=== PATIENT | female | born 1970 | race Caucasian/White ===

== ENCOUNTER 2018-09-22 04:27 | Inpatient (IN) ==
--- NOTE | 2018-09-22 04:40 | ED ---
HPI General Chief Complaint: Arrhythmia / Palpitations Stated Complaint: Cough x 1 wk,chest pain,short of breath Time Seen by Provider: 09/22/18 04:37 Source: patient Mode of arrival: ambulatory Limitations: no limitations History of Present Illness HPI narrative: 48-year-old female patient with previous history of anxiety attacks, states that she has been very stressed out recently, 2 family members have recently, and for the last week she has had coughing, chest discomfort, palpitations, and intermittent shortness of breath. She states that it got much worse tonight, but she states that she knows it was coming because she has been feeling more stressed out. She denies any fevers, vomiting , or other symptoms. Related Data Home Medications Medication Instructions Recorded Confirmed No Known Home Medications 09/22/18 09/22/18 Allergies Allergy/AdvReac Type Severity Reaction Status Date / Time codeine Allergy Severe WELTS Verified 09/22/18 04:43 Review of Systems ROS: all other systems reviewed are negative PMFSH History History Provided By: Patient Medical History Medical History Patient denies medical problems (Acute) Surgical History Surgical History No history of previous surgery (Acute) Family History Family History Father Family history of tobacco abuse Social History Social History Substance History: No History of Abuse Second Hand Smoke Exposure: No Smoking Status: Former smoker Tobacco Type: Cigarettes Number of Pack-Years (if former smoker): 15 How Often Do You Have a Drink Containing Alcohol: 2 to 4 times a month Recent Travel in [facility] within the Last 8 Weeks: No Recent Out of Country Travel within the Last 8 Weeks: No Exam Narrative Exam Narrative: GENERAL: Well-developed middle-age female patient currently in moderate distress, appears fairly anxious. Awake and oriented x3. SKIN: Focused skin assessment warm/dry. HEAD: Atraumatic. Normocephalic. EYES: Pupils equal and round. No scleral icterus. No injection or drainage. ENT: No nasal bleeding or discharge. Mucous membranes pink and moist. NECK: Trachea midline. No JVD. CARDIOVASCULAR: Regular rate and rhythm. No murmur appreciated. RESPIRATORY: No accessory muscle use. Clear to auscultation. Breath sounds equal bilaterally. GASTROINTESTINAL: Abdomen soft, non-tender, nondistended. Hepatic and splenic margins not palpable. MUSCULOSKELETAL: No obvious deformities. No clubbing. No cyanosis. No edema. NEUROLOGICAL: Awake and alert. No obvious cranial nerve deficits. Motor grossly within normal limits. Normal speech. PSYCHIATRIC: Very anxious mood and affect; insight and judgment normal. Course Initial Documented Vital Signs Pulse Rate 145 H 09/22/18 04:35 Respiratory Rate 25 H 09/22/18 04:35 Blood Pressure 140/95 H 09/22/18 04:35 Pulse Oximetry 90 L 09/22/18 04:35 Last Documented Vital Signs Temperature 98.6 F 09/22/18 16:00 Pulse Rate 120 H 09/22/18 17:11 Respiratory Rate 35 H 09/22/18 17:11 Blood Pressure 109/72 09/22/18 16:51 Pulse Oximetry 97 09/22/18 17:11 Medical Decision Making MDM Narrative Medical decision making narrative: EKG shows narrow complex tachycardia which appears to be regular and is likely sinus tachycardia. Chest x-ray and CTA show signs of new onset CHF. No PE identified. BNP is 1000. At this point, case is discussed with hospitalist for admission peer Medical Screen Exam Complete: Yes Emergency Medical Condition: Yes Differential Diagnosis Differential Diagnosis: Anxiety attack versus dysrhythmias versus ACS versus PE Lab Data Lab results reviewed: Yes I reviewed the patient's lab results. Result diagrams: 09/22/18 05:18 09/22/18 04:35 Lab Results 09/22/18 09/22/18 09/22/18 Range/Units 04:35 04:35 04:35 CBC w Diff WBC (4.0-11.0) th/mm3 RBC (4.00-5.30) mil/mm3 Hgb (11.6-15.3) gm/dL Hct (35.0-46.0) % MCV (80.0-100.0) fL MCH (27.0-34.0) pg MCHC (32.0-36.0) % RDW (11.6-17.2) % Plt Count (150-450) th/mm3 MPV (7.0-11.0) fL Neut % (Auto) (16.0-70.0) % Lymph % (Auto) (9.0-44.0) % [place] % (Auto) (0.0-8.0) % Eos % (Auto) (0.0-4.0) % Baso % (Auto) (0.0-2.0) % Neut # (Auto) (1.8-7.7) th/mm3 Lymph # (Auto) (1.0-4.8) th/mm3 [place] # (Auto) (0.0-0.9) th/mm3 Eos # (Auto) (0.0-0.4) th/mm3 Baso # (Auto) (0.0-0.2) th/mm3 WBC Differential Differential Comment PT 11.5 (9.8-11.6) sec INR 1.1 Ratio APTT 20.1 L (24.3-30.1) sec D-Dimer Quant (PE/DVT) 0.79 H (0.00-0.50) mg/L FEU Sodium 139 (136-145) meq/L Potassium 3.9 (3.5-5.1) meq/L Chloride 103 (98-107) meq/L Carbon Dioxide 25.5 (21.0-32.0) meq/L Anion Gap 11 (5-15) meq/L BUN 16 (7-18) mg/dL Creatinine 0.86 (0.50-1.00) mg/dL Estimated GFR 70 L (>89) mL/min Random Glucose 120 H (74-106) mg/dL Calcium 8.3 L (8.5-10.1) mg/dL Total Bilirubin 0.3 (0.2-1.0) mg/dL AST 85 H (15-37) U/L ALT 99 H (10-53) U/L Alkaline Phosphatase 85 (45-117) U/L Troponin I Less than 0.02 L (0.02-0.05) ng/mL B-Natriuretic Peptide 1024 H (0-100) pg/mL Total Protein 7.3 (6.4-8.2) g/dL Albumin 3.7 (3.4-5.0) g/dL Pleural RBC (0-0) /mm3 Pleural Nuc Cells (0-10) /mm3 Pleural Neutrophils % Pleural Lymphocytes % Pleural Histocytes % Pleural Mesothelial % Pleural Total Protein gm/dL Pleural LDH U/L Pleural Glucose mg/dL Pleural Amylase U/L 10/09/22/18 09/22/18 Range/Units 05:18 10:45 13:20 CBC w Diff Auto diff final WBC 7.9 (4.0-11.0) th/mm3 RBC 4.36 (4.00-5.30) mil/mm3 Hgb 13.1 (11.6-15.3) gm/dL Hct 39.2 (35.0-46.0) % MCV 89.8 (80.0-100.0) fL MCH 30.1 (27.0-34.0) pg MCHC 33.5 (32.0-36.0) % RDW 14.7 (11.6-17.2) % Plt Count 314 (150-450) th/mm3 MPV 8.2 (7.0-11.0) fL Neut % (Auto) 55.6 (16.0-70.0) % Lymph % (Auto) 34.4 (9.0-44.0) % [place] % (Auto) 6.7 (0.0-8.0) % Eos % (Auto) 1.6 (0.0-4.0) % Baso % (Auto) 1.7 (0.0-2.0) % Neut # (Auto) 4.5 (1.8-7.7) th/mm3 Lymph # (Auto) 2.7 (1.0-4.8) th/mm3 [place] # (Auto) 0.5 (0.0-0.9) th/mm3 Eos # (Auto) 0.1 (0.0-0.4) th/mm3 Baso # (Auto) 0.1 (0.0-0.2) th/mm3 WBC Differential . Differential Comment . PT (9.8-11.6) sec INR Ratio APTT (24.3-30.1) sec D-Dimer Quant (PE/DVT) (0.00-0.50) mg/L FEU Sodium (136-145) meq/L Potassium (3.5-5.1) meq/L Chloride (98-107) meq/L Carbon Dioxide (21.0-32.0) meq/L Anion Gap (5-15) meq/L BUN (7-18) mg/dL Creatinine (0.50-1.00) mg/dL Estimated GFR (>89) mL/min Random Glucose (74-106) mg/dL Calcium (8.5-10.1) mg/dL Total Bilirubin (0.2-1.0) mg/dL AST (15-37) U/L ALT (10-53) U/L Alkaline Phosphatase (45-117) U/L Troponin I Less than 0.02 L (0.02-0.05) ng/mL B-Natriuretic Peptide (0-100) pg/mL Total Protein (6.4-8.2) g/dL Albumin (3.4-5.0) g/dL Pleural RBC 1340 H (0-0) /mm3 Pleural Nuc Cells 95 H (0-10) /mm3 Pleural Neutrophils 3 % Pleural Lymphocytes 76 % Pleural Histocytes 20 % Pleural Mesothelial 1 % Pleural Total Protein gm/dL Pleural LDH U/L Pleural Glucose mg/dL Pleural Amylase U/L 09/22/18 Range/Units 13:31 CBC w Diff WBC (4.0-11.0) th/mm3 RBC (4.00-5.30) mil/mm3 Hgb (11.6-15.3) gm/dL Hct (35.0-46.0) % MCV (80.0-100.0) fL MCH (27.0-34.0) pg MCHC (32.0-36.0) % RDW (11.6-17.2) % Plt Count (150-450) th/mm3 MPV (7.0-11.0) fL Neut % (Auto) (16.0-70.0) % Lymph % (Auto) (9.0-44.0) % [place] % (Auto) (0.0-8.0) % Eos % (Auto) (0.0-4.0) % Baso % (Auto) (0.0-2.0) % Neut # (Auto) (1.8-7.7) th/mm3 Lymph # (Auto) (1.0-4.8) th/mm3 [place] # (Auto) (0.0-0.9) th/mm3 Eos # (Auto) (0.0-0.4) th/mm3 Baso # (Auto) (0.0-0.2) th/mm3 WBC Differential Differential Comment PT (9.8-11.6) sec INR Ratio APTT (24.3-30.1) sec D-Dimer Quant (PE/DVT) (0.00-0.50) mg/L FEU Sodium (136-145) meq/L Potassium (3.5-5.1) meq/L Chloride (98-107) meq/L Carbon Dioxide (21.0-32.0) meq/L Anion Gap (5-15) meq/L BUN (7-18) mg/dL Creatinine (0.50-1.00) mg/dL Estimated GFR (>89) mL/min Random Glucose (74-106) mg/dL Calcium (8.5-10.1) mg/dL Total Bilirubin (0.2-1.0) mg/dL AST (15-37) U/L ALT (10-53) U/L Alkaline Phosphatase (45-117) U/L Troponin I (0.02-0.05) ng/mL B-Natriuretic Peptide (0-100) pg/mL Total Protein (6.4-8.2) g/dL Albumin (3.4-5.0) g/dL Pleural RBC (0-0) /mm3 Pleural Nuc Cells (0-10) /mm3 Pleural Neutrophils % Pleural Lymphocytes % Pleural Histocytes % Pleural Mesothelial % Pleural Total Protein 1.9 gm/dL Pleural LDH 66 U/L Pleural Glucose 108 mg/dL Pleural Amylase 14 U/L Imaging Data Attestation: I personally reviewed and interpreted this imaging study as follows : Radiologist's impression: Chest X-Ray 09/22/18 00:00 CONCLUSION: 1. Near interval resolution of right-sided pleural effusion without pneumothorax. 2. Persistent moderate left pleural effusion with associated airspace disease at the lung base. Thoracentesis Ultrasound 09/22/18 00:00 CONCLUSION: 1. Uncomplicated right thoracentesis yielding 750 cc of clear yellow pleural fluid which was sent for laboratory evaluation. Chest X-Ray 09/22/18 04:37 CONCLUSION: Prominent interstitial markings which may represent pulmonary venous hypertension versus mild edema. Atelectasis or consolidation at the left base. A mild left effusion cannot be excluded. Chest CTA 09/22/18 05:37 CONCLUSION: 1. No pulmonary embolus. 2. Moderate to large bilateral pleural effusions being worse in the left with suspected accompanying areas of atelectasis or consolidation at the posterior lower lobes. Myocardial Perfusion Scan Nuc Med 09/22/18 14:25 CONCLUSION: 1. Scintigraphic findings characteristic of a dilated cardiomyopathy with diffuse hypokinesis and a markedly reduced ejection fraction of 22%. 2. Possible old apical infarct. 3. No reversibility to suggest ischemia. Discharge Plan Discharge Disposition Patient Disposition: 30 Still Patient Discharge Condition Condition: Stable Discharge Details Anticipated Discharge Date: 09/21/18 Diagnosis: Elevated brain natriuretic peptide (BNP) level, Bilateral pleural effusion Physicians Team ED Provider: Donnie Perez Primary Care Provider: Primary Care Poppy Anderson Attending Provider: Khang Kurtz Other Providers: Vazquez Yeh Discharge Interventions Interventions: ED Discharge Assessment Last Done: 09/22/18 07:38 Vital Signs Last Done: 09/22/18 06:48 Status ED Status: Left Department Discharge Information Discharge Date/Time: 09/22/18 07:40
--- NOTE | 2018-09-22 04:50 | XR ---
EXAM DATE: 09/22/2018 4:37 AM EDT AGE/SEX: 48 years / Female INDICATIONS: Short of breath. CLINICAL DATA: This is the patient's initial encounter. Patient reports that signs and symptoms have been present for 1 day and indicates a pain score of 5/10. MEDICAL/SURGICAL HISTORY: None. None. COMPARISON: No prior exams available for comparison. FINDINGS: The heart size is upper limits of normal for size. There is patchy density at the left base with silh ouetting of the lateral left hemidiaphragm. The interstitial markings are prominent. CONCLUSION: Prominent interstitial markings which may represent pulmonary venous hypertension versus mild edema. Atelectasis or consolidation at the left base. A mild left effusion cannot be excluded. Electronically signed by: Reggie Bey MD 09/22/2018 4:48 AM EDT
[2018-09-22 05:15] LABS: Chloride 103 meq/L (98-107); Potassium 3.9 meq/L (3.5-5.1); Sodium 139 meq/L (136-145)
[2018-09-22 05:18] LABS: Calcium 8.3 mg/dL (8.5-10.1)
[2018-09-22 05:19] LABS: Albumin 3.7 g/dL (3.4-5.0); Anion Gap 11 meq/L (5-15); Blood Urea Nitrogen 16 mg/dL (7-18); Carbon Dioxide 25.5 meq/L (21.0-32.0); Glucose,Random 120 mg/dL (74-106)
[2018-09-22 05:22] LABS: Alanine Aminotransferase 99 U/L (10-53); Aspartate Aminotransferase 85 U/L (15-37); Glomerular Filtration Rate 70 mL/min (>89)
[2018-09-22 05:23] LABS: Baso # (Auto) 0.1 th/mm3 (0.0-0.2); Baso % (Auto) 1.7 % (0.0-2.0); Eos # (Auto) 0.1 th/mm3 (0.0-0.4); Eos % (Auto) 1.6 % (0.0-4.0); Hematocrit 39.2 % (35.0-46.0); Hemoglobin 13.1 gm/dL (11.6-15.3); Lymph # (Auto) 2.7 th/mm3 (1.0-4.8); Lymph % (Auto) 34.4 % (9.0-44.0); Mean Corpuscular HGB Conc 33.5 % (32.0-36.0); Mean Corpuscular Hemoglobin 30.1 pg (27.0-34.0); Mean Corpuscular Volume 89.8 fL (80.0-100.0); Mean Platelet Volume 8.2 fL (7.0-11.0); Mono # (Auto) 0.5 th/mm3 (0.0-0.9); Mono % (Auto) 6.7 % (0.0-8.0); Neut # (Auto) 4.5 th/mm3 (1.8-7.7); Neut % (Auto) 55.6 % (16.0-70.0); Platelet Count 314 th/mm3 (150-450); Red Blood Count 4.36 mil/mm3 (4.00-5.30); Red Cell Distribution Width 14.7 % (11.6-17.2); White Blood Count 7.9 th/mm3 (4.0-11.0)
[2018-09-22 05:23] LABS: Total Protein 7.3 g/dL (6.4-8.2)
[2018-09-22 05:25] LABS: Alkaline Phosphatase 85 U/L (45-117)
[2018-09-22 05:27] LABS: Activated Partial Thrombo Time 20.1 sec (24.3-30.1); INR 1.1 Ratio; Prothrombin Time 11.5 sec (9.8-11.6)
[2018-09-22 05:29] LABS: D-Dimer 0.79 mg/L FEU (0.00-0.50)
--- NOTE | 2018-09-22 06:27 | CT ---
EXAM DATE: 09/22/2018 5:48 AM EDT AGE/SEX: 48 years / Female INDICATIONS: Chest pain. Shortness of breath. Elevated heart rate. CLINICAL DATA: This is the patient's initial encounter. Patient reports that signs and symptoms have been present for 4 - 6 days and indicates a pain score of 4/10. MEDICAL/SURGICAL HISTORY: None. None. RADIATION DOSE: 6.7 CTDI (mGy) COMPARISON: No prior exams available for comparison. TECHNIQUE: Volumetric scanning was performed using a multi-row detector CT scanner during bolus infu jose of 75 ml Omnipaque 350 (iohexol) nonionic water-soluble contrast as a single exam dose. The lamine a was post processed with a variety of visualization algorithms including full volume maximum intensi ty projection and sliding thin slab reformation. Using automated exposure control and adjustment of t he mA and/or kV according to patient size, radiation dose was kept as low as reasonably achievable to obtain optimal diagnostic quality images. DICOM format image data is available electronically for r eview and comparison. FINDINGS: Pulmonary Arteries: No filling defects are seen in the pulmonary arteries out to the subsegmental ve ssels. The left and right pulmonary arteries are normal in diameter. Lung: There is increased density at the posterior lower lungs bilaterally likely related to atelecta sis or consolidation. Effusion: There are moderate to large bilateral pleural effusions being worse on the right Mediastinum: No evidence of mediastinal or hilar adenopathy. Other: The axilla is unremarkable. There is a 6.6 cm cyst at the anterior superior left kidney. CONCLUSION: 1. No pulmonary embolus. 2. Moderate to large bilateral pleural effusions being worse in the left with suspected accompanying areas of atelectasis or consolidation at the posterior lower lobes. Electronically signed by: Reggie Bey MD 09/22/2018 6:26 AM EDT
[2018-09-22] MEDS ORDERED: Acetaminophen 325 MG Tablet PO PRN (06:39)
[2018-09-22] MEDS ORDERED: Bisacodyl 10 MG Supp RECTAL PRN (06:39)
[2018-09-22] MEDS ORDERED: Metoprolol Tartrate 25 MG Tablet PO SCH (09:00)
--- NOTE | 2018-09-22 09:07 | P.HP ---
History of Present Illness Primary Care Physician: No Primary Care Physician Chief Complaint: Shortness of breath and dyspnea History of Present Illness: 48-year-old female with no chronic medical illnesses who presented to hospital because of shortness of breath and dyspnea. Patient states that over the last 2 weeks she has been having intermittent shortness of breath and dyspnea. She states that it is worse whenever she lays down, however it does improve whenever she stands up. She does have a long history of tobacco use which she quit smoking 5 years ago. She has had a dry nonproductive cough over the last few weeks as well. Patient states that whenever she gets these episodes she does feel very anxious, pressure in her chest, feels her heart racing. She started feeling at 11 PM last night and just did not get any better , she woke her son up at 4 AM this morning and he brought her to the hospital for evaluation. Workup does indicate significant pleural effusion bilaterally on CT scan. Patient has been tachycardic. No signs of any infection at this time. But no etiology of patient's pleural effusion, elevated BNP. Patient denies any lower extremity edema, denies any dyspnea on exertion. - Diagnosis (1) Elevated brain natriuretic peptide (BNP) level (2) Bilateral pleural effusion Inpatient Certification: I certify that the inpatient services were ordered in accordance with Medicare regulations governing the order. This includes certification that hospital inpatient services are reasonable and necessary and in the case of services not specified as inpatient-only under 42 CFR 419.22(n), that they are appropriately provided as inpatient services in accordance to with the 2-midnight benchmark under 43 CFR 412.3(e) Estimated Total Length of Stay (Days): 2 Plans for Post Hospital Care: Not yet determined Review of Systems All other systems reviewed negative except as stated in HPI Respiratory: Reports cough, Reports shortness of breath, Reports other ( Orthopnea) PMFSH - History History Provided By: Patient - Medical History Medical History: Medical History (Last Reviewed 09/22/18 @ 09:01 by LONI Finley) Patient denies medical problems - Surgical History Surgical History: Surgical History (Last Reviewed 09/22/18 @ 09:01 by LONI Finley) No history of previous surgery - Family History Family History: Family History (Last Updated 09/22/18 @ 09:01 by LONI Finley) Father Family history of tobacco abuse - Tobacco History Second Hand Smoke Exposure: No Tobacco Use In Past 30 Days: No Smoking Status: Former smoker Tobacco Type: Cigarettes Number of Pack Years (if former smoker): 15 - Alcohol History How Often Do You Have a Drink Containing Alcohol: 2 to 4 times a month - Substance Use History Substance History: No History of Abuse - Travel History Recent Travel in the [place] Within the Last 8 Weeks: No Recent Travel Out of the Country Within the Last 8 Weeks: No - Immunization History Tetanus Immunization: Unsure Hx Influenza Vaccine This Season: Yes Medications and Allergies Active Medications: Active Medications Acetaminophen (Tylenol) 650 mg PO Q4H PRN PRN Reason: Temp > 100.4 Al Hydroxide/Mg Hydroxide (Milk Of Magnesia Liq) 30 ml PO Q12H PRN PRN Reason: Mild Constipation Bisacodyl (Dulcolax Supp) 10 mg RECTAL DAILY PRN PRN Reason: SEVERE CONSITIPATION Furosemide (Lasix Inj) 40 mg IV.PUSH BID@0900,1800 AYDEE Lactulose (Lactulose Liq) 30 ml PO DAILY PRN PRN Reason: SEVERE CONSITIPATION Lisinopril (Prinivil) 2.5 mg PO DAILY AYDEE Metoprolol Tartrate (Lopressor) 12.5 mg PO BID AYDEE Miscellaneous (Pill Splitter) 1 each OTHER UNSCH PRN PRN Reason: SEE LABEL COMMENTS Ondansetron HCl (Zofran Inj) 4 mg IV.PUSH Q6H PRN PRN Reason: NAUSEA OR VOMITING Senna/Docusate Sodium (Stella-Colace) 1 tab PO BID AYDEE Sennosides (Senokot) 17.2 mg PO Q12H PRN PRN Reason: Moderate Constipation Allergies Allergy/AdvReac Type Severity Reaction Status Date / Time codeine Allergy Severe WELTS Verified 09/22/18 04:43 Home Medications Medication Instructions Recorded Confirmed Type No Known Home Medications 09/22/18 09/22/18 History Exam Vital signs: Vital Signs 09/22/18 04:35 09/22/18 04:40 09/22/18 05:04 Temperature Pulse Rate 145 H Respiratory Rate 25 H Blood Pressure 140/95 H Pulse Oximetry 90 L 94 L 93 L 09/22/18 05:09 09/22/18 05:10 09/22/18 05:20 Temperature 98.5 F Pulse Rate 121 H Respiratory Rate 20 Blood Pressure 132/87 Pulse Oximetry 86 L 90 L 97 09/22/18 05:57 09/22/18 06:46 09/22/18 06:48 Temperature 98.4 F Pulse Rate 123 H 125 H Respiratory Rate 20 Blood Pressure 133/91 H 151/87 H 151/87 H Pulse Oximetry 95 09/22/18 07:08 09/22/18 07:18 Temperature Pulse Rate 121 H Respiratory Rate 22 Blood Pressure 130/86 Pulse Oximetry 97 Intake & Output 09/21/18 09/22/18 09/22/18 18:59 06:59 18:59 Weight 56.699 kg 57 kg Other: Weight On Admission 59 kg Narrative: GENERAL: Well-developed, well-nourished, in no acute distress. alert and orientated HEENT: Head is normocephalic without any lesions or masses noted. Facial features are symmetric. Eyes: Pupils equal round reactive to light. Extraocular muscles are intact. Conjunctivae were clear. Oropharyngeal: Pharynx without any erythema edema. Tongue is midline without deviation. Buccal mucosa is moist without any masses or lesions NECK: Supple without any masses. Trachea midline no deviation. No JVD, no bruits are appreciated CARDIAC: Regular rhythm, regular rate. S1/S2 are heard. No murmurs gallops or rubs. LUNGS: Absent breath sounds noted bilateral lower lung beasley. No wheeze, rhonchi or rales. No use of accessory muscles on inspiration or expiration. ABDOMEN: Soft, nontender. Nondistended. Bowel sounds heard in all 4 quadrants. No organomegaly or masses. Negative rebound, negative guarding EXTREMITIES: No edema, pulses are equal bilaterally. No cyanosis or clubbing NEUROLOGY: Mood and affect appear appropriate. Cranial nerves II through XII grossly intact. Muscle strength 5/5 in upper and lower extremities bilaterally. Deep tendon reflexes are 2+ in upper and lower extremities bilaterally. Results - Labs CBC & Chem 7: 09/22/18 05:18 09/22/18 04:35 Labs: Laboratory Results - last 24 hr 09/22/18 09/22/18 09/22/18 04:35 04:35 04:35 CBC w Diff WBC RBC Hgb Hct MCV MCH MCHC RDW Plt Count MPV Neut % (Auto) Lymph % (Auto) [place] % (Auto) Eos % (Auto) Baso % (Auto) Neut # (Auto) Lymph # (Auto) [place] # (Auto) Eos # (Auto) Baso # (Auto) WBC Differential Differential Comment PT 11.5 INR 1.1 APTT 20.1 L D-Dimer Quant (PE/DVT) 0.79 H Sodium 139 Potassium 3.9 Chloride 103 Carbon Dioxide 25.5 Anion Gap 11 BUN 16 Creatinine 0.86 Estimated GFR 70 L Random Glucose 120 H Calcium 8.3 L Total Bilirubin 0.3 AST 85 H ALT 99 H Alkaline Phosphatase 85 Troponin I Less than 0.02 L B-Natriuretic Peptide 1024 H Total Protein 7.3 Albumin 3.7 09/22/18 05:18 CBC w Diff Auto diff final WBC 7.9 RBC 4.36 Hgb 13.1 Hct 39.2 MCV 89.8 MCH 30.1 MCHC 33.5 RDW 14.7 Plt Count 314 MPV 8.2 Neut % (Auto) 55.6 Lymph % (Auto) 34.4 [place] % (Auto) 6.7 Eos % (Auto) 1.6 Baso % (Auto) 1.7 Neut # (Auto) 4.5 Lymph # (Auto) 2.7 [place] # (Auto) 0.5 Eos # (Auto) 0.1 Baso # (Auto) 0.1 WBC Differential . Differential Comment . PT INR APTT D-Dimer Quant (PE/DVT) Sodium Potassium Chloride Carbon Dioxide Anion Gap BUN Creatinine Estimated GFR Random Glucose Calcium Total Bilirubin AST ALT Alkaline Phosphatase Troponin I B-Natriuretic Peptide Total Protein Albumin - Imaging Impressions Chest X-Ray 09/22/18 04:37 CONCLUSION: Prominent interstitial markings which may represent pulmonary venous hypertension versus mild edema. Atelectasis or consolidation at the left base. A mild left effusion cannot be excluded. Chest CTA 09/22/18 05:37 CONCLUSION: 1. No pulmonary embolus. 2. Moderate to large bilateral pleural effusions being worse in the left with suspected accompanying areas of atelectasis or consolidation at the posterior lower lobes. Caprini VTE Risk Assessment Caprini VTE Risk Assessment: No/Low Risk (score <= 1) Caprini Risk Assessment Model: Point Value = 1 Point Value = 2 Point Value = 3 Point Value = 5 Age 41-60 Minor surgery BMI > 25 kg/m2 Swollen legs Varicose veins or History of unexplained or recurrent spontaneous Oral contraceptives or hormone replacement Sepsis (< 1 month) Serious lung disease, including pneumonia (< 1 month) Abnormal pulmonary function Acute myocardial infarction Congestive heart failure (< 1 month) History of inflammatory bowel disease Medical patient at bed rest Age 61-74 Arthroscopic surgery Major open surgery (> 45 min) Laparoscopic surgery (> 45 min) Malignancy Confined to bed (> 72 hours) Immobilizing plaster cast Central venous access Age >= 75 History of VTE Family history of VTE Factor V Leiden Prothrombin [id number] Lupus anticoagulant Anticardiolipin antibodies Elevated serum homocysteine Heparin-induced thrombocytopenia Other congenital or acquired thrombophilia Stroke (< 1 month) Elective arthroplasty Hip, pelvis, or leg fracture Acute spinal cord injury (< 1 month) Prophylaxis Regimen: Total Risk Factor Score Risk Level Prophylaxis Regimen 0-1 Low Early ambulation 2 Moderate Order ONE of the following: *Sequential Compression Device (SCD) *Heparin 5000 units SQ BID 3-4 Higher Order ONE of the following medications: *Heparin 5000 units SQ TID *Enoxaparin/Lovenox 40 mg SQ daily (WT < 150 kg, CrCl > 30 mL/min) *Enoxaparin/Lovenox 30 mg SQ daily (WT < 150 kg, CrCl > 10-29 mL/min) *Enoxaparin/Lovenox 30 mg SQ BID (WT < 150 kg, CrCl > 30 mL/min) AND/OR *Sequential Compression Device (SCD) 5 or more Highest Order ONE of the following medications: *Heparin 5000 units SQ TID (Preferred with Epidurals) *Enoxaparin/Lovenox 40 mg SQ daily (WT < 150 kg, CrCl > 30 mL/min) *Enoxaparin/Lovenox 30 mg SQ daily (WT < 150 kg, CrCl > 10-29 mL/min) *Enoxaparin/Lovenox 30 mg SQ BID (WT < 150 kg, CrCl > 30 mL/min) AND *Sequential Compression Device (SCD) Assessment and Plan - Assessment (1) Elevated brain natriuretic peptide (BNP) level Code(s): R79.89 - Other specified abnormal findings of blood chemistry Status : Acute (2) Bilateral pleural effusion Code(s): J90 - Pleural effusion, not elsewhere classified Status: Acute - Plan Bilateral pleural effusions with shortness of breath, dyspnea, orthopnea, tachycardia -Unknown etiology at this time, need to evaluate for source, but patient does have elevated BNP -Chest x-ray is very vague and indicating that findings could represent pulmonary venous hypertension, mild edema, atelectasis, consolidation, effusion -Pulmonary angiogram was performed which did not indicate any embolic event, however upon reviewing the scan it does show rather significant bilateral pleural effusions with compressive atelectasis -Obtaining echocardiogram -Obtain ultrasound-guided thoracentesis for pleural fluid testing -Continue diuresis -Continue monitor cardiac enzymes -We will start low-dose beta-migdalia, WANDA inhibitor -Consult cardiology for further recommendations DVT prevention -Sequential compression devices, avoid chemical prophylaxis secondary to procedure
[2018-09-22] MEDS: Lisinopril 5 MG Tablet PO SCH (09:28)
[2018-09-22] MEDS: Senna/Docusate Sodium 8.6/50 MG Tablet PO SCH ×2 (09:33→21:10)
--- NOTE | 2018-09-22 13:05 | ECHRPT ---
Indication: Cardiomyopathy CONCLUSIONS Mildly dilated left ventricle. Wall thickness is normal. The left ventricular systolic function is severely reduced with an estimated ejection fraction less than 20%. There is global left ventricular dysfunction. Moderate to severe mitral valve regurgitation. Aortic valve sclerosis is present. There is mild tricuspid valve regurgitation. The estimated pulmonary arterial pressure is 48 mmHg. The inferior vena cava is plethoric and noncompressible consistent with estimated RAP 15+mmHg. There is a small pericardial effusion present. A large left sided pleural effusion is noted. BP: 127 / 91 HR: Rhythm: MEASUREMENTS (Male / Female) Normal Values Technical Quality:Good 2D ECHO LV Diastolic Diameter PLAX 5.6 cm 4.2 - 5.9 / 3.9 - 5.3 cm LV Systolic Diameter PLAX 4.9 cm IVS Diastolic Thickness 0.8 cm 0.6 - 1.0 / 0.6 - 0.9 cm LVPW Diastolic Thickness 0.9 cm 0.6 - 1.0 / 0.6 - 0.9 cm LV Relative Wall Thickness 0.3 RV Internal Dim ED PLAX 2.3 cm LVOT Diameter 1.8 cm Aortic Root Diameter 2.7 cm LA Systolic Diameter LX 3.4 cm 3.0 - 4.0 / 2.7 - 3.8 cm LV Ejection Fraction MOD 4C 17.0 % LV Ejection Fraction 4C AL 19.3 % M-MODE AV Cusp Separation MM 1.7 cm DOPPLER AV Peak Velocity 110.0 cm/s AV Peak Gradient 4.8 mmHg LVOT Peak Velocity 75.0 cm/s LVOT Peak Gradient 2.3 mmHg AV Area Cont Eq pk 1.7 cm Mitral E Point Velocity 114.0 cm/s LV E' Lateral Velocity 8.4 cm/s Mitral E to LV E' Lateral Ratio 13.6 LV E' Septal Velocity 10.7 cm/s Mitral E to LV E' Septal Ratio 10.7 TR Peak Velocity 306.0 cm/s TR Peak Gradient 37.5 mmHg Right Atrial Pressure 10.0 mmHg Pulmonary Artery Systolic Pressu 47.5 mmHg Right Ventricular Systolic Press 47.5 mmHg PV Peak Velocity 67.9 cm/s PV Peak Gradient 1.8 mmHg FINDINGS LEFT VENTRICLE Mildly dilated left ventricle. Wall thickness is normal. The left ventricular systolic function is severely reduced with an estimated ejection fraction less than 20%. There is global left ventricular dysfunction. RIGHT VENTRICLE Normal right ventricular size and systolic function. LEFT ATRIUM The left atrial size is normal. RIGHT ATRIUM The right atrial size is normal. ATRIAL SEPTUM Normal atrial septal thickness without atrial level shunting by limited color doppler interrogation. AORTA The aortic root and proximal ascending aorta are normal in size on limited imaging. MITRAL VALVE Structurally normal mitral valve. No mitral valve stenosis. Moderate to severe functional mitral bernabe ve regurgitation. AORTIC VALVE Trileaflet aortic valve. Aortic valve sclerosis is present. TRICUSPID VALVE There is mild tricuspid valve regurgitation. The estimated pulmonary arterial pressure is 48 mmHg. PULMONARY VALVE No pulmonary valve regurgitation or stenosis. VESSELS The inferior vena cava is plethoric and noncompressible consistent with estimated RAP 15+mmHg. PERICARDIUM There is a small pericardial effusion present. OTHER FINDINGS A large left sided pleural effusion is noted. Sixto Melgar (Electronically Signed) Final Date:22 September 2018 13:03
--- NOTE | 2018-09-22 13:25 | ECG ---
Date Performed: 09/22/2018 Time Performed: 04:33:39 PTAGE: 48 years EKG: SINUS TACHYCARDIA, POSSIBLE ATRIAL FLUTTER NONSPECIFIC ST & T-WAVE ABNORMALITY ABNORMAL RHY THM ECG Clinical correlation is recommended NO PREVIOUS TRACING DOCTOR: Car Antony Interpretating Date/Time 09/22/2018 13:24:33
--- NOTE | 2018-09-22 13:58 | XR ---
EXAM DATE: 09/22/2018 1:45 PM EDT AGE/SEX: 48 years / Female INDICATIONS: Post thoracentesis. CLINICAL DATA: This is the patient's subsequent encounter. Patient reports that signs and symptoms h ave been present for 1 day and indicates a pain score of 3/10. MEDICAL/SURGICAL HISTORY: None. None. COMPARISON: [facility], CTA PULMONARY W CONTRAST W 3D, 09/22/2018. . FINDINGS: Near interval resolution of right-sided pleural effusion. Persistent [id number] left pleural e ffusion with associated left lower lobe airspace disease. No significant pneumothorax. Cardiomediasti nal contours are stable. Remainder of the exam is unchanged. CONCLUSION: 1. Near interval resolution of right-sided pleural effusion without pneumothorax. 2. Persistent moderate left pleural effusion with associated airspace disease at the lung base. Electronically signed by: Sanjeev Hanna MD 09/22/2018 1:56 PM EDT
--- NOTE | 2018-09-22 14:09 | US ---
EXAM DATE: 09/22/2018 1:45 PM EDT AGE/SEX: 48 years / Female INDICATIONS: Right pleural effusion. CLINICAL DATA: This is the patient's initial encounter. Patient reports that signs and symptoms have been present for 1 day and indicates a pain score of 0/10. MEDICAL/SURGICAL HISTORY: . Pleural effusion. Anxiety. None. COMPARISON: [facility], CHEST EXPIRATION ONLY, 09/22/2018. . FLUID: Total volume of 750 cc of clear, yellow fluid was removed. Fluid was sent to lab for ordered studies. . . TECHNIQUE: Ultrasound guidance for thoracentesis. Thoracentesis. The risks, benefits, and alternatives to ultrasound guided thoracentesis were explained to the patien t in lay simple terms, including the risk of bleeding and infection. Written and verbal informed con sent was obtained. Appropriate area for right thoracentesis was marked under ultrasound guidance with the patient in the upright position. Overlying skin was prepped and draped in the usual sterile fashion and with local anesthetic, a dermatotomy was made with an 11 blade scalpel. A 6 Nepali thoracentesis catheter was placed in the pleural space and fluid was removed. Catheter was then removed and a sterile dressing applied. There were no immediate complications. The patient tolerated the procedure well and the lef t the ultrasound suite in stable condition. Chest radiograph is to be obtained. FINDINGS: Adequate fluid for thoracentesis. CONCLUSION: 1. Uncomplicated right thoracentesis yielding 750 cc of clear yellow pleural fluid which was sent fo r laboratory evaluation. Electronically signed by: Rahat Cm MD 09/22/2018 2:08 PM EDT
[2018-09-22] MEDS ORDERED: Regadenoson Inj 0.4 MG/5 ML Syringe IV.PUSH ONE ×2 (14:24→16:00)
[2018-09-22 14:37] LABS: Lymphocytes,Pleural Fluid 76 %; Mesothelial,Pleural Fluid 1 %; Neutrophils,Pleural Fluid 3 %
[2018-09-22 14:38] LABS: RBC,Pleural Fluid 1340 /mm3 (0-0)
[2018-09-22] MEDS: Spironolactone 25 MG Tablet PO SCH (15:15)
--- NOTE | 2018-09-22 16:15 | P.CONCA ---
History of Present Illness Service: cardiology Consult date: 09/22/18 Requesting Physician: Torni Pritchett Reason for Consult: cardiomyopathy, chf Primary Care Provider: No Primary Care Physician Chief Complaint: Shortness of breath and dyspnea History of Present Illness: 48-year-old lady with no known prior medical issues who presented to the [facility] ER with shortness of breath, dry cough and intermittent chest pain. She reports that over the past month she has been experiencing progressively worsening dyspnea at rest and with exertion. She is somewhat vague in describing whether she has orthopnea or PND. It is difficult for her to state how frequently she has been having episodes. She described substernal chest heaviness intermittently over this duration as well. She states that in the early hours this morning she developed quite severe chest pressure along with nonproductive cough and dyspnea which prompted her to present to the ER. In the ER she was provided furosemide 20 mg IV x1 and a few hours later another dose of [address] angiogram of the chest revealed no pulmonary embolism but bilateral pleural effusions left greater than right. She underwent a ultrasound-guided thoracentesis of the right with 750 cc of fluid removal. Over the course of the day her oxygen saturation has been maintained around 92- 94% with supplemental oxygen. She states that her dyspnea has somewhat improved. She is more comfortable lying flat. Upon presentation she was noted to have sinus tachycardia HR 145 bpm and was provided Lopressor 12.5 mg p.o. x1. Throughout the day has remained sinus on telemetry with rate of approximately 110 bpm. An echocardiogram was completed earlier today which by my read reveals dilated cardiomyopathy with severe global hypokinesis, LVEF less than 20%, moderate to severe MR which appears to be functional MR due to lack of coaptation of the mitral valve leaflets, mild TR, PAP 48 mmHg and RAP 15+ mmHg, small pericardial effusion and large left-sided pleural effusion noted. Currently she is feeling comfortable and has no chest pain. Of note, she reports that her cousin age 42 of stage IV lung cancer and her is tomorrow. Patient's father also due to multiple medical problems in June as he was a heavy smoker and drinker. She has been under a lot of stress recently in lieu of these recent deaths in her family. Denies any illicit drug use. Reports smoking history from her 20s until 5 years ago, 1/2 pack/day. She consumes 1 glass of wine every night. No formal exercise routine. Review of Systems All other systems reviewed negative except as stated in HPI [facility] - History History Provided By: Patient - Medical History Medical History: Medical History (Last Reviewed 09/22/18 @ 09:01 by LONI Finley) Patient denies medical problems - Surgical History Surgical History: Surgical History (Last Reviewed 09/22/18 @ 09:01 by LONI Finley) No history of previous surgery - Family History Family History: Family History (Last Updated 09/22/18 @ 09:01 by LONI Finley) Father Family history of tobacco abuse - Tobacco History Second Hand Smoke Exposure: No Tobacco Use In Past 30 Days: No Smoking Status: Former smoker Tobacco Type: Cigarettes Number of Pack Years (if former smoker): 15 - Alcohol History How Often Do You Have a Drink Containing Alcohol: 2 to 4 times a month - Substance Use History Substance History: No History of Abuse - Travel History Recent Travel in the [place] Within the Last 8 Weeks: No Recent Travel Out of the Country Within the Last 8 Weeks: No - Immunization History Tetanus Immunization: Unsure Hx Influenza Vaccine This Season: Yes Medications and Allergies Active Medications: Active Medications Acetaminophen (Tylenol) 650 mg PO Q4H PRN PRN Reason: Temp > 100.4 Al Hydroxide/Mg Hydroxide (Milk Of Magnesia Liq) 30 ml PO Q12H PRN PRN Reason: Mild Constipation Bisacodyl (Dulcolax Supp) 10 mg RECTAL DAILY PRN PRN Reason: SEVERE CONSITIPATION Carvedilol (Coreg) 6.25 mg PO BID [facility] Furosemide (Lasix Inj) 40 mg IV.PUSH BID@0900,1800 [facility] Last Admin: 09/22/18 09:31 Dose: 40 mg Lactulose (Lactulose Liq) 30 ml PO DAILY PRN PRN Reason: SEVERE CONSITIPATION Lisinopril (Prinivil) 2.5 mg PO DAILY [facility] Last Admin: 09/22/18 09:28 Dose: 2.5 mg Miscellaneous (Pill Splitter) 1 each OTHER UNSCH PRN PRN Reason: SEE LABEL COMMENTS Ondansetron HCl (Zofran Inj) 4 mg IV.PUSH Q6H PRN PRN Reason: NAUSEA OR VOMITING Senna/Docusate Sodium (Stella-Colace) 1 tab PO BID [facility] Last Admin: 09/22/18 09:33 Dose: Not Given Sennosides (Senokot) 17.2 mg PO Q12H PRN PRN Reason: Moderate Constipation Spironolactone (Aldactone) 12.5 mg PO DAILY [facility] Last Admin: 09/22/18 15:15 Dose: 12.5 mg Allergies Allergy/AdvReac Type Severity Reaction Status Date / Time codeine Allergy Severe WELTS Verified 09/22/18 04:43 Home Medications Medication Instructions Recorded Confirmed Type No Known Home Medications 09/22/18 09/22/18 History Exam Vital signs: Vital Signs 09/22/18 04:35 09/22/18 04:40 09/22/18 05:04 Temperature Pulse Rate 145 H Respiratory Rate 25 H Blood Pressure 140/95 H Pulse Oximetry 90 L 94 L 93 L 09/22/18 05:09 09/22/18 05:10 09/22/18 05:20 Temperature 98.5 F Pulse Rate 121 H Respiratory Rate 20 Blood Pressure 132/87 Pulse Oximetry 86 L 90 L 97 09/22/18 05:57 09/22/18 06:46 09/22/18 06:48 Temperature 98.4 F Pulse Rate 123 H 125 H Respiratory Rate 20 Blood Pressure 133/91 H 151/87 H 151/87 H Pulse Oximetry 95 09/22/18 07:08 09/22/18 07:18 09/22/18 08:00 Temperature Pulse Rate 121 H 122 H Respiratory Rate 22 29 H Blood Pressure 130/86 127/91 H Pulse Oximetry 97 94 L 09/22/18 09:00 09/22/18 12:00 Temperature 98.5 F Pulse Rate 127 H 120 H Respiratory Rate 24 Blood Pressure 106/72 Pulse Oximetry 97 Intake & Output 09/21/18 09/22/18 09/22/18 18:59 06:59 18:59 Weight 56.699 kg 57 kg Other: Weight On Admission 59 kg Narrative: GENERAL: A and O x3, comfortable appearing lying fairly flat. Speaking full sentences SKIN: Warm and dry. HEAD: Atraumatic. Normocephalic. EYES: Pupils equal and round. No scleral icterus. No injection or drainage. ENT: No nasal bleeding or discharge. Mucous membranes pink and moist. NECK: Trachea midline. JVP elevated to approximately 12 cm. CARDIOVASCULAR: Tachycardic and regular rhythm. 1/6 systolic ejection murmur at the left lower sternal border. RESPIRATORY: No accessory muscle use. Decreased breath sounds on the left. Coarse breath sounds at the right base. No wheeze. GASTROINTESTINAL: Abdomen soft, non-tender, nondistended. Hepatic and splenic margins not palpable. MUSCULOSKELETAL: Extremities without clubbing, cyanosis, or edema. No obvious deformities. NEUROLOGICAL: Awake and alert. No obvious cranial nerve deficits. Motor grossly within normal limits. Normal speech. PSYCHIATRIC: Appropriate mood and affect; insight and judgment normal. Results 09/22/18 05:18 09/22/18 04:35 Cardiac Enzymes 09/22/18 09/22/18 09/22/18 Range/Units 04:35 04:35 10:45 AST 85 H (15-37) U/L Troponin I Less than 0.02 L Less than 0.02 L (0.02-0.05) ng/mL B-Natriuretic Peptide 1024 H (0-100) pg/mL Coagulation 09/22/18 09/22/18 Range/Units 04:35 04:35 PT 11.5 (9.8-11.6) sec APTT 20.1 L (24.3-30.1) sec B-Natriuretic Peptide 1024 H (0-100) pg/mL CBC 09/22/18 Range/Units 05:18 WBC 7.9 (4.0-11.0) th/mm3 RBC 4.36 (4.00-5.30) mil/mm3 Hgb 13.1 (11.6-15.3) gm/dL Hct 39.2 (35.0-46.0) % Plt Count 314 (150-450) th/mm3 Neut # (Auto) 4.5 (1.8-7.7) th/mm3 Lymph # (Auto) 2.7 (1.0-4.8) th/mm3 [place] # (Auto) 0.5 (0.0-0.9) th/mm3 Eos # (Auto) 0.1 (0.0-0.4) th/mm3 Baso # (Auto) 0.1 (0.0-0.2) th/mm3 Comprehensive Metabolic Panel 09/22/18 Range/Units 04:35 Sodium 139 (136-145) meq/L Potassium 3.9 (3.5-5.1) meq/L Chloride 103 (98-107) meq/L Carbon Dioxide 25.5 (21.0-32.0) meq/L BUN 16 (7-18) mg/dL Creatinine 0.86 (0.50-1.00) mg/dL Calcium 8.3 L (8.5-10.1) mg/dL AST 85 H (15-37) U/L ALT 99 H (10-53) U/L Alkaline Phosphatase 85 (45-117) U/L Total Protein 7.3 (6.4-8.2) g/dL Albumin 3.7 (3.4-5.0) g/dL Intake and Output 09/22/18 09/22/18 09/22/18 06:59 14:59 22:59 Other: Weight 56.699 kg 57 kg Weight On Admission 59 kg Patient Weight 09/23/18 06:59 Weight 57 kg - Imaging and Cardiology Imaging: Impressions Chest X-Ray 09/22/18 00:00 CONCLUSION: 1. Near interval resolution of right-sided pleural effusion without pneumothorax. 2. Persistent moderate left pleural effusion with associated airspace disease at the lung base. Thoracentesis Ultrasound 09/22/18 00:00 CONCLUSION: 1. Uncomplicated right thoracentesis yielding 750 cc of clear yellow pleural fluid which was sent for laboratory evaluation. Chest X-Ray 09/22/18 04:37 CONCLUSION: Prominent interstitial markings which may represent pulmonary venous hypertension versus mild edema. Atelectasis or consolidation at the left base. A mild left effusion cannot be excluded. Chest CTA 09/22/18 05:37 CONCLUSION: 1. No pulmonary embolus. 2. Moderate to large bilateral pleural effusions being worse in the left with suspected accompanying areas of atelectasis or consolidation at the posterior lower lobes. Assessment and Plan - Plan Assessment: --Dilated cardiomyopathy, suspect nonischemic with global hypokinesis on echocardiogram and with cardiac biomarkers negative x2. Will require further evaluation for ischemia. If Lexiscan stress test is negative, differential diagnosis would include a possible tachycardia induced cardiomyopathy versus stress-induced cardiomyopathy. --Acute decompensated systolic heart failure --Bilateral pleural effusions s/p right sided thoracentesis today with 750 cc fluid removal --Sinus tachycardia, may be compensatory versus inappropriate sinus tachycardia Recommendations: -Lexiscan stress test today -Continue diuresis with furosemide 40 mg IV twice daily -Start spironolactone 12.5 mg daily -Stopped metoprolol tartrate and start carvedilol 6.25 mg twice daily with holding parameters -Continue lisinopril 2.5 mg daily, uptitrate if SBP maintains >100 -We will discuss if patient is amenable to utilizing a LifeVest for primary prevention at time of discharge. -She will require outpatient uptitration of the recommended medical therapy as tolerated and repeat echocardiogram in approximately 3-4 months, if LVEF remains <35%, she may benefit from AICD placement for primary prevention.
--- NOTE | 2018-09-22 17:09 | NM ---
EXAM DATE: 09/22/2018 5:01 PM EDT AGE/SEX: 48 years / Female INDICATIONS:Congestive heart failure. . CLINICAL DATA: This is the patient's initial encounter. Patient reports that signs and symptoms have been present for 1 day and indicates a pain score of 2/10. MEDICAL/SURGICAL HISTORY: . Smoker. None. COMPARISON: No prior exams available for comparison. DOSE: 8.1 mCi Tc 99m Myoview at rest 26.3 mCi [id number] at stress 0.4 mg Lexiscan STRESS SYMPTOMS: Short of breath. EJECTION FRACTION: 22 % TECHNIQUE: The patient underwent pharmacologic stress with infusion of prescribed dose. Continuous ECG tracing was monitored during stress. Gated SPECT imaging was performed after stress and conventi onal SPECT imaging was performed at rest. The examination was performed on a SPECT/CT scanner, both attenuation and non-corrected datasets were reviewed. FINDINGS: Distribution: The maximum perfused segment at stress is in the anterolateral wall. Perfusion Study: The pattern of perfusion at stress ventricular dilation with mural thickening, mos t severe at the apex. There may be an old apical infarct with fixed diminished perfusion to this niurka on. No reversibility to suggest ischemia. Gated Study: Severe, diffuse hypokinesis The ejection fraction is calculated at 22%. RISK CATEGORY: High (>3% Annual Morality Rate) CONCLUSION: 1. Scintigraphic findings characteristic of a dilated cardiomyopathy with diffuse hypokinesis and a markedly reduced ejection fraction of 22%. 2. Possible old apical infarct. 3. No reversibility to suggest ischemia. Electronically signed by: Devante Anderson MD 09/22/2018 5:07 PM EDT
[2018-09-22 18:08] LABS: Total Protein,Pleural Fluid 1.9 gm/dL
[2018-09-22] MEDS: Carvedilol 6.25 MG Tablet PO SCH (21:10)
[2018-09-23 05:16] LABS: Baso # (Auto) 0.1 th/mm3 (0.0-0.2); Baso % (Auto) 0.9 % (0.0-2.0); Eos # (Auto) 0.1 th/mm3 (0.0-0.4); Eos % (Auto) 1.9 % (0.0-4.0); Hematocrit 42.8 % (35.0-46.0); Hemoglobin 14.3 gm/dL (11.6-15.3); Lymph # (Auto) 2.8 th/mm3 (1.0-4.8); Lymph % (Auto) 36.3 % (9.0-44.0); Mean Corpuscular HGB Conc 33.3 % (32.0-36.0); Mean Corpuscular Hemoglobin 30.2 pg (27.0-34.0); Mean Corpuscular Volume 90.6 fL (80.0-100.0); Mean Platelet Volume 8.4 fL (7.0-11.0); Mono # (Auto) 0.5 th/mm3 (0.0-0.9); Mono % (Auto) 6.9 % (0.0-8.0); Neut # (Auto) 4.3 th/mm3 (1.8-7.7); Platelet Count 305 th/mm3 (150-450); Red Blood Count 4.73 mil/mm3 (4.00-5.30); Red Cell Distribution Width 14.5 % (11.6-17.2); White Blood Count 7.8 th/mm3 (4.0-11.0)
[2018-09-23 05:19] LABS: Chloride 101 meq/L (98-107); Potassium 3.4 meq/L (3.5-5.1); Sodium 140 meq/L (136-145)
[2018-09-23 05:22] LABS: Calcium 8.5 mg/dL (8.5-10.1)
[2018-09-23 05:23] LABS: Albumin 3.3 g/dL (3.4-5.0); Anion Gap 10 meq/L (5-15); Blood Urea Nitrogen 22 mg/dL (7-18); Carbon Dioxide 28.6 meq/L (21.0-32.0); Glucose,Random 100 mg/dL (74-106)
[2018-09-23 05:26] LABS: Alanine Aminotransferase 77 U/L (10-53); Aspartate Aminotransferase 41 U/L (15-37); Glomerular Filtration Rate 63 mL/min (>89)
[2018-09-23 05:27] LABS: Total Protein 6.8 g/dL (6.4-8.2)
[2018-09-23 05:29] LABS: Alkaline Phosphatase 70 U/L (45-117)
[2018-09-23] MEDS: Lisinopril 5 MG Tablet PO SCH (09:18)
[2018-09-23] MEDS: Spironolactone 25 MG Tablet PO SCH (09:19)
[2018-09-23] MEDS: Carvedilol 6.25 MG Tablet PO SCH ×2 (09:19→20:34)
[2018-09-23] MEDS: Senna/Docusate Sodium 8.6/50 MG Tablet PO SCH ×2 (09:20→20:34)
--- NOTE | 2018-09-23 13:53 | P.PN ---
Subjective Interval history: 48-year-old female who is seen and examined today for follow-up on dilated cardiomyopathy. Patient states that she is doing much better. Breathing is much improved. She is able to lay flat without any shortness of breath. Patient denies any chest pain. Vital signs are stable. Patient remains afebrile. Physical Exam Vital signs: Vital Signs 09/22/18 16:00 09/22/18 16:51 09/22/18 17:11 Temperature 98.6 F Pulse Rate 120 H 108 H 120 H Respiratory Rate 26 H 35 H Blood Pressure 109/72 109/72 Pulse Oximetry 96 97 97 09/22/18 19:18 09/22/18 20:00 09/22/18 21:50 Temperature 98.9 F Pulse Rate 102 H Respiratory Rate 29 H Blood Pressure 107/70 Pulse Oximetry 92 L 99 94 L 09/23/18 00:00 09/23/18 04:00 09/23/18 08:00 Temperature 98.6 F 98.1 F 98.5 F Pulse Rate 102 H 104 H 90 Respiratory Rate 25 H 21 Blood Pressure 96/65 L 114/74 108/70 Pulse Oximetry 95 93 L 90 L 09/23/18 11:28 Temperature Pulse Rate Respiratory Rate Blood Pressure Pulse Oximetry 95 Intake & Output 09/22/18 09/23/18 09/23/18 18:59 06:59 18:59 Intake Total 480 / 480 320 / 320 Output Total 3100 / 3100 1200 / 1200 Balance -2620 / -2620 -880 / -880 Weight 57 kg 59.2 kg Intake: Oral 480 / 480 320 / 320 Output: Urine 1600 / 1600 1200 / 1200 Pleural Fluid 1500 / 1500 Other: Date of Last Bowel Movement 09/23/18 # Bowel Movements 1 Weight On Admission 59 kg Narrative: GENERAL: Well-developed, well-nourished, in no acute distress. alert and orientated HEENT: Head is normocephalic without any lesions or masses noted. Facial features are symmetric. Eyes: Extraocular muscles are intact. Conjunctivae were clear. NECK: Supple without any masses. Trachea midline no deviation. No JVD, CARDIAC: Regular rhythm, regular rate. S1/S2 are heard. No murmurs gallops or rubs. LUNGS: Clear to auscultation bilaterally. No wheeze, rhonchi or rales. No use of accessory muscles on inspiration or expiration. ABDOMEN: Soft, nontender. Nondistended. Bowel sounds heard in all 4 quadrants. No organomegaly or masses. Negative rebound, negative guarding EXTREMITIES: No edema, pulses are equal bilaterally. No cyanosis or clubbing NEUROLOGY: Mood and affect appear appropriate. Cranial nerves II through XII grossly intact. Moving all extremities, speech is clear Results - Labs CBC & Chem 7: 09/23/18 04:33 09/23/18 04:33 Laboratory Results - last 24 hr 09/22/18 09/22/18 09/23/18 13:20 13:31 04:33 CBC w Diff Auto diff final WBC 7.8 RBC 4.73 Hgb 14.3 Hct 42.8 MCV 90.6 MCH 30.2 MCHC 33.3 RDW 14.5 Plt Count 305 MPV 8.4 Neut % (Auto) 54.0 Lymph % (Auto) 36.3 [place] % (Auto) 6.9 Eos % (Auto) 1.9 Baso % (Auto) 0.9 Neut # (Auto) 4.3 Lymph # (Auto) 2.8 [place] # (Auto) 0.5 Eos # (Auto) 0.1 Baso # (Auto) 0.1 WBC Differential . Differential Comment . Sodium Potassium Chloride Carbon Dioxide Anion Gap BUN Creatinine Estimated GFR Random Glucose Calcium Total Bilirubin AST ALT Alkaline Phosphatase Total Protein Albumin Pleural RBC 1340 H Pleural Nuc Cells 95 H Pleural Neutrophils 3 Pleural Lymphocytes 76 Pleural Histocytes 20 Pleural Mesothelial 1 Pleural Total Protein 1.9 Pleural LDH 66 Pleural Glucose 108 Pleural Amylase 14 09/23/18 04:33 CBC w Diff WBC RBC Hgb Hct MCV MCH MCHC RDW Plt Count MPV Neut % (Auto) Lymph % (Auto) [place] % (Auto) Eos % (Auto) Baso % (Auto) Neut # (Auto) Lymph # (Auto) [place] # (Auto) Eos # (Auto) Baso # (Auto) WBC Differential Differential Comment Sodium 140 Potassium 3.4 L Chloride 101 Carbon Dioxide 28.6 Anion Gap 10 BUN 22 H Creatinine 0.94 Estimated GFR 63 L Random Glucose 100 Calcium 8.5 Total Bilirubin 0.5 AST 41 H ALT 77 H Alkaline Phosphatase 70 Total Protein 6.8 Albumin 3.3 L Pleural RBC Pleural Nuc Cells Pleural Neutrophils Pleural Lymphocytes Pleural Histocytes Pleural Mesothelial Pleural Total Protein Pleural LDH Pleural Glucose Pleural Amylase Microbiology 09/22/18 13:20 Fluid - Pleural fluid Gram Stain - Final 09/22/18 13:20 Fluid - Pleural fluid Body Fluid Culture - Preliminary No growth in 24 hours 09/22/18 13:20 Fluid - Pleural fluid Fungal Smear - Final No fungal elements seen - Imaging Impressions Chest X-Ray 09/22/18 00:00 CONCLUSION: 1. Near interval resolution of right-sided pleural effusion without pneumothorax. 2. Persistent moderate left pleural effusion with associated airspace disease at the lung base. Thoracentesis Ultrasound 09/22/18 00:00 CONCLUSION: 1. Uncomplicated right thoracentesis yielding 750 cc of clear yellow pleural fluid which was sent for laboratory evaluation. Myocardial Perfusion Scan Nuc Med 09/22/18 14:25 CONCLUSION: 1. Scintigraphic findings characteristic of a dilated cardiomyopathy with diffuse hypokinesis and a markedly reduced ejection fraction of 22%. 2. Possible old apical infarct. 3. No reversibility to suggest ischemia. Assessment and Plan - Assessment (1) Elevated brain natriuretic peptide (BNP) level Code(s): R79.89 - Other specified abnormal findings of blood chemistry Status : Acute (2) Bilateral pleural effusion Code(s): J90 - Pleural effusion, not elsewhere classified Status: Acute - Plan Dilated cardiomyopathy -Cardiac enzymes were performed which did not indicate any acute abnormality or signs of acute coronary event -Myocardial perfusion study was performed which did not indicate any signs of ischemia -Patient continued on Coreg, low-dose WANDA inhibitor -Echocardiogram, see results -Cardiology consulted and is following the patient -Patient will require LifeVest prior to discharge Compensated systolic congestive heart failure -Patient with bilateral pleural effusions with shortness of breath, dyspnea, orthopnea, tachycardia -Chest x-ray is very vague and indicating that findings could represent pulmonary venous hypertension, mild edema, atelectasis, consolidation, effusion -Pulmonary angiogram was performed which did not indicate any embolic event, however upon reviewing the scan it does show rather significant bilateral pleural effusions with compressive atelectasis -Thoracentesis was performed with did have removal of 750 cc out of the right lung. -Pleural fluid studies indicating transudate of fluid -Continue diuresis, patient with rather impressive diuresis of 3-1/2 L of fluid overnight -Continue monitor cardiac enzymes -Continue beta-migdalia, WANDA inhibitor DVT prevention -Sequential compression devices, avoid chemical prophylaxis secondary to procedure
[2018-09-24 06:22] LABS: Potassium 3.5 meq/L (3.5-5.1)
[2018-09-24 06:25] LABS: Calcium 8.6 mg/dL (8.5-10.1)
[2018-09-24] MEDS ORDERED: Furosemide 20 MG Tablet PO SCH (09:00)
[2018-09-24] MEDS: Lisinopril 5 MG Tablet PO SCH (09:47)
[2018-09-24] MEDS: Spironolactone 25 MG Tablet PO SCH (09:48)
[2018-09-24] MEDS: Carvedilol 6.25 MG Tablet PO SCH (09:48)
[2018-09-24] MEDS: Senna/Docusate Sodium 8.6/50 MG Tablet PO SCH (09:49)
--- NOTE | 2018-09-24 11:03 | P.PN ---
Subjective Interval history: 48-year-old female who is seen and examined today for follow-up on dilated cardiomyopathy. Patient is doing well. Denies any shortness of breath. Awaiting LifeVest for discharge. Vital signs are stable. Patient remains afebrile. Physical Exam Vital signs: Vital Signs 09/23/18 11:28 09/23/18 12:00 09/23/18 13:00 Temperature 98.1 F Pulse Rate 92 H 96 H Respiratory Rate 23 31 H Blood Pressure 111/93 H 91/61 L Pulse Oximetry 95 98 94 L 09/23/18 14:00 09/23/18 15:00 09/23/18 15:03 Temperature Pulse Rate 102 H 102 H 96 H Respiratory Rate 28 H 27 H 26 H Blood Pressure 92/57 L 86/56 L 96/63 L Pulse Oximetry 94 L 95 94 L 09/23/18 16:00 09/23/18 18:26 09/23/18 20:00 Temperature 98.5 F 98.3 F Pulse Rate 108 H 92 H 98 H Respiratory Rate 40 H 29 H 28 H Blood Pressure 86/61 L 104/75 94/65 L Pulse Oximetry 95 95 97 09/23/18 23:25 09/24/18 00:00 09/24/18 04:00 Temperature 97.9 F 97.9 F Pulse Rate 82 86 84 Respiratory Rate 20 19 17 Blood Pressure 90/55 L 90/55 L 91/56 L Pulse Oximetry 97 09/24/18 08:00 Temperature 98.4 F Pulse Rate 87 Respiratory Rate 20 Blood Pressure 95/62 L Pulse Oximetry Intake & Output 09/23/18 09/24/18 09/24/18 18:59 06:59 18:59 Intake Total 720 / 720 Output Total 1250 / 1250 Balance -530 / -530 Weight 56.6 kg Intake: Oral 720 / 720 Output: Urine 1250 / 1250 Other: # Voids 3 Date of Last Bowel Movement 09/22/18 09/22/18 Narrative: GENERAL: Well-developed, well-nourished, in no acute distress. alert and orientated HEENT: Head is normocephalic without any lesions or masses noted. Facial features are symmetric. Eyes: Extraocular muscles are intact. Conjunctivae were clear. NECK: Supple without any masses. Trachea midline no deviation. No JVD, CARDIAC: Regular rhythm, regular rate. S1/S2 are heard. No murmurs gallops or rubs. LUNGS: Clear to auscultation bilaterally. No wheeze, rhonchi or rales. No use of accessory muscles on inspiration or expiration. ABDOMEN: Soft, nontender. Nondistended. Bowel sounds heard in all 4 quadrants. No organomegaly or masses. Negative rebound, negative guarding EXTREMITIES: No edema, pulses are equal bilaterally. No cyanosis or clubbing NEUROLOGY: Mood and affect appear appropriate. Cranial nerves II through XII grossly intact. Moving all extremities, speech is clear Results - Labs CBC & Chem 7: 09/23/18 04:33 09/24/18 05:50 Laboratory Results - last 24 hr 09/24/18 05:50 Sodium 140 Potassium 3.5 Chloride 103 Carbon Dioxide 30.0 Anion Gap 7 BUN 24 H Creatinine 0.87 Estimated GFR 69 L Random Glucose 104 Calcium 8.6 Microbiology 09/22/18 13:20 Fluid - Pleural fluid Gram Stain - Final 09/22/18 13:20 Fluid - Pleural fluid Body Fluid Culture - Preliminary No growth in 48 hours 09/22/18 13:20 Fluid - Pleural fluid Acid Fast Bacilli Smear - Final No acid fast bacilli seen 09/22/18 13:20 Fluid - Pleural fluid Fungal Smear - Final No fungal elements seen Assessment and Plan - Assessment (1) Elevated brain natriuretic peptide (BNP) level Code(s): R79.89 - Other specified abnormal findings of blood chemistry Status : Acute (2) Bilateral pleural effusion Code(s): J90 - Pleural effusion, not elsewhere classified Status: Acute - Plan Dilated cardiomyopathy -Cardiac enzymes were performed which did not indicate any acute abnormality or signs of acute coronary event -Myocardial perfusion study was performed which did not indicate any signs of ischemia -Patient continued on Coreg, low-dose WANDA inhibitor -Echocardiogram, see results -Cardiology consulted and is following the patient -Patient will require LifeVest prior to discharge Compensated systolic congestive heart failure -Patient with bilateral pleural effusions with shortness of breath, dyspnea, orthopnea, tachycardia -Chest x-ray is very vague and indicating that findings could represent pulmonary venous hypertension, mild edema, atelectasis, consolidation, effusion -Pulmonary angiogram was performed which did not indicate any embolic event, however upon reviewing the scan it does show rather significant bilateral pleural effusions with compressive atelectasis -Thoracentesis was performed with did have removal of 750 cc out of the right lung. -Pleural fluid studies indicating transudate of fluid -Continue diuresis, patient with rather impressive diuresis of 3-1/2 L of fluid overnight -Continue monitor cardiac enzymes -Continue beta-migdalia, WANDA inhibitor -Continue Lasix 20 mg daily DVT prevention -Sequential compression devices, avoid chemical prophylaxis secondary to procedure Discharge Planning: Awaiting LifeVest for discharge
[2018-09-24] MEDS ORDERED: Magnesium Sulfate Inj 2 GM in Sodium Chlor 0.9% Inj 96 ML IV.SIG ONE (14:00)
[2018-09-24] MEDS: Furosemide 20 MG Tablet PO SCH (20:22)
[2018-09-25] MEDS: Carvedilol 6.25 MG Tablet PO SCH ×3 (00:23→21:12)
[2018-09-25] MEDS: Senna/Docusate Sodium 8.6/50 MG Tablet PO SCH ×3 (00:23→21:12)
--- NOTE | 2018-09-25 02:15 | XR ---
EXAM DATE: 09/25/2018 1:49 AM EDT AGE/SEX: 48 years / Female INDICATIONS: . Congestive heart failure. CLINICAL DATA: This is the patient's subsequent encounter. Patient reports that signs and symptoms h ave been present for 4 - 6 days and indicates a pain score of 0/10. MEDICAL/SURGICAL HISTORY: Congestive heart failure. Anxiety. Pleural effusion None. COMPARISON: HPO, CHEST EXPIRATION ONLY, 09/22/2018. HPO, CTA PULMONARY W CONTRAST W 3D, 018. . FINDINGS: AP and lateral views of the chest demonstrate the lungs to be symmetrically aerated without evidence of mass, infiltrate or effusion. The cardiomediastinal contours are unremarkable. The central bronch opulmonary markings are well delineated. Osseous structures are intact. CONCLUSION: The lungs are clear. No residual pleural effusion. Electronically signed by: Vincent Anders MD 09/25/2018 2:14 AM EDT
[2018-09-25 06:13] LABS: Potassium 3.6 meq/L (3.5-5.1)
[2018-09-25 06:16] LABS: Calcium 8.4 mg/dL (8.5-10.1)
[2018-09-25 06:17] LABS: Carbon Dioxide 30.8 meq/L (21.0-32.0)
--- NOTE | 2018-09-25 08:34 | P.PN ---
Subjective Interval history: 48-year-old female who is seen and examined today for follow-up on dilated cardiomyopathy. Patient resting carefully in bed. As getting take a shower. Patient is mildly frustrated that she is still in the hospital. Awaiting arrangement of LifeVest. Vital signs remained stable. Patient afebrile Physical Exam Vital signs: Vital Signs 09/24/18 09:00 09/24/18 12:00 09/24/18 16:00 Temperature 98.9 F 98.9 F Pulse Rate 97 H 91 H 94 H Respiratory Rate 19 17 Blood Pressure 90/63 L 92/62 L Pulse Oximetry 95 95 09/24/18 19:43 09/24/18 20:00 09/24/18 22:06 Temperature 97.8 F Pulse Rate 112 H 112 H Respiratory Rate 40 H 40 H Blood Pressure 101/63 97/61 L Pulse Oximetry 98 97 97 09/25/18 00:00 09/25/18 04:00 09/25/18 08:18 Temperature 98.0 F Pulse Rate 98 H 82 Respiratory Rate 24 20 Blood Pressure 86/66 L 92/54 L Pulse Oximetry 96 Intake & Output 09/24/18 09/25/18 09/25/18 18:59 06:59 18:59 Intake Total 720 / 720 100 / 100 Output Total 1300 / 1300 Balance 720 / 720 -1200 / -1200 Weight 56.4 kg Intake: IV 100 / 100 Magnesium Sulfate Inj 2 GM In 100 / 100 NS Inj 96 ML @ 50 mls/hr IV.SIG ONCE ONE Rx#:[id number] Oral 720 / 720 Output: Urine 1300 / 1300 Other: # Voids 6 Date of Last Bowel Movement 09/22/18 09/24/18 Narrative: GENERAL: Well-developed, well-nourished, in no acute distress. alert and orientated HEENT: Head is normocephalic without any lesions or masses noted. Facial features are symmetric. Eyes: Extraocular muscles are intact. Conjunctivae were clear. NECK: Supple without any masses. Trachea midline no deviation. No JVD, CARDIAC: Regular rhythm, regular rate. S1/S2 are heard. No murmurs gallops or rubs. LUNGS: Clear to auscultation bilaterally. No wheeze, rhonchi or rales. No use of accessory muscles on inspiration or expiration. ABDOMEN: Soft, nontender. Nondistended. Bowel sounds heard in all 4 quadrants. No organomegaly or masses. Negative rebound, negative guarding EXTREMITIES: No edema, pulses are equal bilaterally. No cyanosis or clubbing NEUROLOGY: Mood and affect appear appropriate. Cranial nerves II through XII grossly intact. Moving all extremities, speech is clear Results - Labs CBC & Chem 7: 09/23/18 04:33 09/25/18 05:55 Laboratory Results - last 24 hr 09/25/18 05:55 Sodium 141 Potassium 3.6 Chloride 103 Carbon Dioxide 30.8 Anion Gap 7 BUN 20 H Creatinine 0.86 Estimated GFR 70 L Random Glucose 102 Calcium 8.4 L Microbiology 09/22/18 13:20 Fluid - Pleural fluid Gram Stain - Final 09/22/18 13:20 Fluid - Pleural fluid Body Fluid Culture - Final No growth in 72 hours (aerobically and anaerobically ) - Imaging Impressions Chest X-Ray 09/25/18 00:00 CONCLUSION: The lungs are clear. No residual pleural effusion. - Procedures ECHOCARDIOGRAM CONCLUSIONS Mildly dilated left ventricle. Wall thickness is normal. The left ventricular systolic function is severely reduced with an estimated ejection fraction less than 20%. There is global left ventricular dysfunction. Moderate to severe mitral valve regurgitation. Aortic valve sclerosis is present. There is mild tricuspid valve regurgitation. The estimated pulmonary arterial pressure is 48 mmHg. The inferior vena cava is plethoric and noncompressible consistent with estimated RAP 15+mmHg. There is a small pericardial effusion present. A large left sided pleural effusion is noted. Assessment and Plan - Assessment (1) Elevated brain natriuretic peptide (BNP) level Code(s): R79.89 - Other specified abnormal findings of blood chemistry Status : Acute (2) Bilateral pleural effusion Code(s): J90 - Pleural effusion, not elsewhere classified Status: Acute - Plan Dilated cardiomyopathy -Cardiac enzymes were performed which did not indicate any acute abnormality or signs of acute coronary event -Myocardial perfusion study was performed which did not indicate any signs of ischemia -Patient continued on Coreg, low-dose WANDA inhibitor -Echocardiogram, see results -Cardiology consulted and is following the patient -Patient will require LifeVest prior to discharge Compensated systolic congestive heart failure -Patient with bilateral pleural effusions with shortness of breath, dyspnea, orthopnea, tachycardia -Chest x-ray is very vague and indicating that findings could represent pulmonary venous hypertension, mild edema, atelectasis, consolidation, effusion -Pulmonary angiogram was performed which did not indicate any embolic event, however upon reviewing the scan it does show rather significant bilateral pleural effusions with compressive atelectasis -Thoracentesis was performed with did have removal of 750 cc out of the right lung. -Pleural fluid studies indicating transudate of fluid -Continue diuresis, patient has continued with negative fluid balance since admission -Continue monitor cardiac enzymes -Continue beta-migdalia, WANDA inhibitor -Continue Lasix 20 mg twice daily, continue increased diuresis until renal functions indicate appropriate diuresis. DVT prevention -Sequential compression devices Discharge Planning: Awaiting LifeVest for discharge
[2018-09-25] MEDS: Lisinopril 5 MG Tablet PO SCH (08:40)
[2018-09-25] MEDS: Spironolactone 25 MG Tablet PO SCH (08:42)
[2018-09-25] MEDS: Furosemide 20 MG Tablet PO SCH (08:47)
[2018-09-25] MEDS ORDERED: Magnesium Oxide 400 MG Tablet PO SCH (09:00)
--- NOTE | 2018-09-25 11:33 | P.PNCA ---
Subjective Interval history: Patient seen and examined. No complaints. Feeling better - at baseline now. No chest pain, palp, dyspnea, pnd, orthopnea, LE edema. Wants to go home. Tele with 5b atrial run overnight. yesterday with run of NSVT, asymptomatic. Potassium a little low 3.4 at the time. CXR normalized today. I/O continues to be negative on furosemide 20mg bid. Medications and Allergies Active Medications: Active Medications Acetaminophen (Tylenol) 650 mg PO Q4H PRN PRN Reason: Temp > 100.4 Al Hydroxide/Mg Hydroxide (Milk Of Magnesia Liq) 30 ml PO Q12H PRN PRN Reason: Mild Constipation Bisacodyl (Dulcolax Supp) 10 mg RECTAL DAILY PRN PRN Reason: SEVERE CONSITIPATION Carvedilol (Coreg) 6.25 mg PO BID [facility] Last Admin: 09/25/18 08:39 Dose: 6.25 mg Furosemide (Lasix) 20 mg PO BID@0900,1800 [facility] Last Admin: 09/25/18 08:47 Dose: 20 mg Lactulose (Lactulose Liq) 30 ml PO DAILY PRN PRN Reason: SEVERE CONSITIPATION Lisinopril (Prinivil) 2.5 mg PO DAILY [facility] Last Admin: 09/25/18 08:40 Dose: 2.5 mg Magnesium Oxide (Mag-Ox) 400 mg PO DAILY [facility] Last Admin: 09/25/18 08:40 Dose: 400 mg Miscellaneous (Pill Splitter) 1 each OTHER UNSCH PRN PRN Reason: SEE LABEL COMMENTS Ondansetron HCl (Zofran Inj) 4 mg IV.PUSH Q6H PRN PRN Reason: NAUSEA OR VOMITING Potassium Chloride (Klor-Con 10) 10 meq PO DAILY [facility] Last Admin: 09/25/18 08:39 Dose: 10 meq Potassium Chloride (K-Dur) 40 meq PO ONCE ONE Stop: 09/25/18 11:21 Senna/Docusate Sodium (Stella-Colace) 1 tab PO BID [facility] Last Admin: 09/25/18 08:43 Dose: Not Given Sennosides (Senokot) 17.2 mg PO Q12H PRN PRN Reason: Moderate Constipation Spironolactone (Aldactone) 12.5 mg PO DAILY [facility] Last Admin: 09/25/18 08:42 Dose: 12.5 mg Allergies Allergy/AdvReac Type Severity Reaction Status Date / Time codeine Allergy Severe WELTS Verified 09/22/18 04:43 Home Medications Medication Instructions Recorded Confirmed Type No Known Home Medications 09/22/18 09/22/18 History Physical Exam Vital signs: Vital Signs 09/24/18 12:00 09/24/18 16:00 09/24/18 19:43 Temperature 98.9 F 98.9 F Pulse Rate 91 H 94 H Respiratory Rate 19 17 Blood Pressure 90/63 L 92/62 L Pulse Oximetry 95 95 98 09/24/18 20:00 09/24/18 22:06 09/25/18 00:00 Temperature 97.8 F Pulse Rate 112 H 112 H 98 H Respiratory Rate 40 H 40 H 24 Blood Pressure 101/63 97/61 L 86/66 L Pulse Oximetry 97 97 09/25/18 04:00 09/25/18 07:30 09/25/18 08:00 Temperature 98.0 F 98.8 F Pulse Rate 82 82 96 H Respiratory Rate 20 21 27 H Blood Pressure 92/54 L 95/51 L 100/57 L Pulse Oximetry 95 09/25/18 08:18 Temperature Pulse Rate Respiratory Rate Blood Pressure Pulse Oximetry 96 Intake & Output 09/24/18 09/25/18 09/25/18 18:59 06:59 18:59 Intake Total 720 / 720 100 / 100 Output Total 1300 / 1300 Balance 720 / 720 -1200 / -1200 Weight 56.4 kg Intake: IV 100 / 100 Magnesium Sulfate Inj 2 GM In 100 / 100 NS Inj 96 ML @ 50 mls/hr IV.SIG ONCE ONE Rx#:[id number] Oral 720 / 720 Output: Urine 1300 / 1300 Other: # Voids 6 Date of Last Bowel Movement 09/22/18 09/24/18 09/24/18 Narrative: GENERAL: Well-developed, well-nourished, in no acute distress. alert and orientated NECK: Supple without any masses. Trachea midline no deviation. No JVD CARDIAC: Regular rhythm, regular rate. S1/S2 are heard. No murmurs gallops or rubs. LUNGS: Clear to auscultation bilaterally. No wheeze, rhonchi or rales. No use of accessory muscles on inspiration or expiration. ABDOMEN: Soft, nontender. Nondistended. Negative rebound, negative guarding EXTREMITIES: No edema, pulses are equal bilaterally. No cyanosis or clubbing NEUROLOGY: Mood and affect appear appropriate. Cranial nerves II through XII grossly intact. Moving all extremities, speech is clear Results 09/23/18 04:33 09/25/18 05:55 Comprehensive Metabolic Panel 09/24/18 09/25/18 Range/Units 05:50 05:55 Sodium 140 141 (136-145) meq/L Potassium 3.5 3.6 (3.5-5.1) meq/L Chloride 103 103 (98-107) meq/L Carbon Dioxide 30.0 30.8 (21.0-32.0) meq/L BUN 24 H 20 H (7-18) mg/dL Creatinine 0.87 0.86 (0.50-1.00) mg/dL Calcium 8.6 8.4 L (8.5-10.1) mg/dL Intake and Output 09/24/18 09/25/18 09/25/18 22:59 06:59 14:59 Intake Total 820 / 820 Output Total 1300 / 1300 Balance 820 / 820 -1300 / -1300 Intake: IV 100 / 100 Magnesium Sulfate Inj 2 GM In 100 / 100 NS Inj 96 ML @ 50 mls/hr IV.SIG ONCE ONE Rx#:[id number] Oral 720 / 720 Output: Urine 1300 / 1300 Other: # Voids 6 Date of Last Bowel Movement 09/24/18 09/24/18 09/24/18 Weight 56.4 kg - Imaging and Cardiology Imaging: Impressions Chest X-Ray 09/25/18 00:00 CONCLUSION: The lungs are clear. No residual pleural effusion. Assessment and Plan - Plan Assessment: --Nonischemic Dilated cardiomyopathy, LVEF < 20% --Acute decompensated systolic heart failure - currently compensated --Bilateral pleural effusions s/p right sided thoracentesis today with 750 cc fluid removal, f/u CXR today is clear bilaterally --Sinus tachycardia, may be compensatory versus inappropriate sinus tachycardia --NSVT 09/25/18 - no recurrence overnight Recommendations: -Meds recommended on d/c tomorrow: furosemide 20mg daily, spironolactone 12.5 mg daily, carvedilol 6.25 mg twice daily, lisinopril 2.5 mg daily, with holding parameters of SBP< 90. Also with potassium chloride 10meq daily, magnesium oxide 400mg bid. -patient is amenable to utilizing a LifeVest for primary prevention which [employer] order forms were completed and in chart -She will require outpatient uptitration of the recommended medical therapy as tolerated and repeat echocardiogram in approximately 3-4 months, if LVEF remains <35%, she may benefit from AICD placement for primary prevention. -I would strongly recommend f/u with a medical provider within next 2-3 weeks with a BMP prior to evaluate her electrolytes and renal function on current meds. -Low sodium diet was strongly reinforced. -She requests case management to assist with setting up follow up with outpatient cardiology. Dr Reyna is know to me to accept Medicaid patient. Unfortunately, she will not be able to follow up with me as I am a [facility] employee and she does not have [facility] insurance. She understands the importance of outpatient follow up as discussed at length. ok for d/c from cardiology perspective.
[2018-09-25] MEDS ORDERED: Sodium Chlor 0.9% Inj 250 ML IV.SIG ONE (17:00)
[2018-09-25] MEDS: Magnesium Oxide 400 MG Tablet PO SCH (18:17)
[2018-09-26 05:06] LABS: Potassium 4.2 meq/L (3.5-5.1)
[2018-09-26 05:10] LABS: Calcium 8.6 mg/dL (8.5-10.1)
[2018-09-26 05:11] LABS: Carbon Dioxide 29.7 meq/L (21.0-32.0)
--- NOTE | 2018-09-26 07:40 | P.PN ---
Subjective Interval history: 48-year-old female who is seen and examined today for follow-up on dilated cardia myopathy. Patient resting very comfortably. Very eager to go home. Awaiting LifeVest to be arranged. Vital signs are stable. Patient remains afebrile. Physical Exam Vital signs: Vital Signs 09/25/18 08:00 09/25/18 08:18 09/25/18 09:21 Temperature Pulse Rate 96 H 92 H Respiratory Rate 27 H 28 H Blood Pressure 100/57 L 96/56 L Pulse Oximetry 96 09/25/18 12:00 09/25/18 13:00 09/25/18 13:13 Temperature 98.6 F Pulse Rate 104 H 90 100 H Respiratory Rate 40 H 22 32 H Blood Pressure 91/51 L 82/67 L 94/53 L Pulse Oximetry 09/25/18 14:00 09/25/18 14:01 09/25/18 14:13 Temperature Pulse Rate 88 88 92 H Respiratory Rate 16 18 21 Blood Pressure 75/49 L 87/50 L 91/44 L Pulse Oximetry 09/25/18 14:26 09/25/18 14:30 09/25/18 14:32 Temperature Pulse Rate 84 90 Respiratory Rate 21 26 H Blood Pressure 72/52 L 72/58 L 84/44 L Pulse Oximetry 09/25/18 14:41 09/25/18 15:00 09/25/18 15:08 Temperature Pulse Rate 88 88 Respiratory Rate 25 H 23 Blood Pressure 73/44 L 75/44 L 81/53 L Pulse Oximetry 09/25/18 15:10 09/25/18 15:26 09/25/18 15:41 Temperature Pulse Rate 84 90 96 H Respiratory Rate 23 20 28 H Blood Pressure 81/53 L 81/50 L 86/54 L Pulse Oximetry 09/25/18 15:51 09/25/18 16:00 09/25/18 17:00 Temperature 98.8 F Pulse Rate 98 H 92 H 96 H Respiratory Rate 30 H 17 27 H Blood Pressure 93/57 L 78/54 L 97/54 L Pulse Oximetry 09/25/18 20:00 09/25/18 20:20 09/26/18 00:00 Temperature 98.0 F 97.6 F Pulse Rate 94 H 100 H Respiratory Rate 23 20 Blood Pressure 93/52 L 94/53 L Pulse Oximetry 97 98 98 09/26/18 04:00 Temperature 97.1 F L Pulse Rate 88 Respiratory Rate 14 Blood Pressure 97/55 L Pulse Oximetry 97 Intake & Output 09/25/18 09/26/18 09/26/18 18:59 06:59 18:59 Intake Total 1210 / 1210 Balance 1210 / 1210 Weight 55.3 kg Intake: IV 250 / 250 NS Inj 250 ML @ 0 mls/hr IV.SIG 250 / 250 BOLUS ONE Rx#:[id number] Oral 960 / 960 Other: # Voids 8 3 Date of Last Bowel Movement 09/24/18 09/25/18 Narrative: GENERAL: Well-developed, well-nourished, in no acute distress. alert and orientated HEENT: Head is normocephalic without any lesions or masses noted. Facial features are symmetric. Eyes: Extraocular muscles are intact. Conjunctivae were clear. NECK: Supple without any masses. Trachea midline no deviation. No JVD, CARDIAC: Regular rhythm, regular rate. S1/S2 are heard. No murmurs gallops or rubs. LUNGS: Clear to auscultation bilaterally. No wheeze, rhonchi or rales. No use of accessory muscles on inspiration or expiration. ABDOMEN: Soft, nontender. Nondistended. Bowel sounds heard in all 4 quadrants. No organomegaly or masses. Negative rebound, negative guarding EXTREMITIES: No edema, pulses are equal bilaterally. No cyanosis or clubbing NEUROLOGY: Mood and affect appear appropriate. Cranial nerves II through XII grossly intact. Moving all extremities, speech is clear Results - Labs CBC & Chem 7: 09/23/18 04:33 09/26/18 04:35 Laboratory Results - last 24 hr 09/26/18 04:35 Sodium 140 Potassium 4.2 Chloride 105 Carbon Dioxide 29.7 Anion Gap 5 BUN 20 H Creatinine 0.82 Estimated GFR 74 L Random Glucose 103 Calcium 8.6 Microbiology 09/22/18 13:20 Fluid - Pleural fluid Gram Stain - Final 09/22/18 13:20 Fluid - Pleural fluid Body Fluid Culture - Final No growth in 72 hours (aerobically and anaerobically ) - Procedures ECHOCARDIOGRAM CONCLUSIONS Mildly dilated left ventricle. Wall thickness is normal. The left ventricular systolic function is severely reduced with an estimated ejection fraction less than 20%. There is global left ventricular dysfunction. Moderate to severe mitral valve regurgitation. Aortic valve sclerosis is present. There is mild tricuspid valve regurgitation. The estimated pulmonary arterial pressure is 48 mmHg. The inferior vena cava is plethoric and noncompressible consistent with estimated RAP 15+mmHg. There is a small pericardial effusion present. A large left sided pleural effusion is noted. Assessment and Plan - Assessment (1) Elevated brain natriuretic peptide (BNP) level Code(s): R79.89 - Other specified abnormal findings of blood chemistry Status : Acute (2) Bilateral pleural effusion Code(s): J90 - Pleural effusion, not elsewhere classified Status: Acute - Plan Dilated cardiomyopathy -Cardiac enzymes were performed which did not indicate any acute abnormality or signs of acute coronary event -Myocardial perfusion study was performed which did not indicate any signs of ischemia -Patient continued on Coreg, low-dose WANDA inhibitor -Echocardiogram, see results -Cardiology consulted and is following the patient -Patient will require LifeVest prior to discharge Compensated systolic congestive heart failure -Patient with bilateral pleural effusions with shortness of breath, dyspnea, orthopnea, tachycardia -Chest x-ray is very vague and indicating that findings could represent pulmonary venous hypertension, mild edema, atelectasis, consolidation, effusion -Pulmonary angiogram was performed which did not indicate any embolic event, however upon reviewing the scan it does show rather significant bilateral pleural effusions with compressive atelectasis -Thoracentesis was performed with did have removal of 750 cc out of the right lung. -Pleural fluid studies indicating transudate of fluid -Continue monitor cardiac enzymes -Continue beta-migdalia, WANDA inhibitor -Continue Lasix 20 mg daily DVT prevention -Sequential compression devices Discharge Planning: Awaiting LifeVest for discharge
[2018-09-26] MEDS: Lisinopril 5 MG Tablet PO SCH (10:25)
[2018-09-26] MEDS: Senna/Docusate Sodium 8.6/50 MG Tablet PO SCH ×2 (10:26→23:43)
[2018-09-26] MEDS: Spironolactone 25 MG Tablet PO SCH (10:26)
[2018-09-26] MEDS: Carvedilol 6.25 MG Tablet PO SCH ×2 (10:26→23:43)
[2018-09-26] MEDS: Furosemide 20 MG Tablet PO SCH (10:26)
[2018-09-26] MEDS: Magnesium Oxide 400 MG Tablet PO SCH ×2 (13:44→19:27)
[2018-09-27 05:42] LABS: Potassium 4.4 meq/L (3.5-5.1)
[2018-09-27 05:46] LABS: Calcium 8.7 mg/dL (8.5-10.1)
[2018-09-27 05:47] LABS: Carbon Dioxide 29.8 meq/L (21.0-32.0)
[2018-09-27] MEDS: Carvedilol 6.25 MG Tablet PO SCH ×2 (09:42→22:44)
[2018-09-27] MEDS: Senna/Docusate Sodium 8.6/50 MG Tablet PO SCH ×2 (09:42→22:44)
[2018-09-27] MEDS: Lisinopril 5 MG Tablet PO SCH (09:43)
[2018-09-27] MEDS: Spironolactone 25 MG Tablet PO SCH (09:43)
[2018-09-27] MEDS: Furosemide 20 MG Tablet PO SCH (09:44)
--- NOTE | 2018-09-27 10:13 | P.PNIM ---
Subjective Interval history: Follow-up dilated cardiomyopathy. Patient seen and examined, sitting in bed in no apparent distress. She does state that she is eager to get home, expresses emotion regarding increasing length of stay and inability to obtain LifeVest. She expresses multiple life stressors. She even states that she would rather just at this point due to everything going on, stating there is no reason to live anymore. She denies any active plan, states she has been depressed for quite some time. Will consult psychiatry. Attempted to reassure. Case management assisting with obtaining a LifeVest. Physical Exam Vital signs: Vital Signs 09/26/18 12:00 09/26/18 13:00 09/26/18 14:00 Temperature Pulse Rate 82 84 90 Respiratory Rate 15 16 17 Blood Pressure Pulse Oximetry 09/26/18 15:00 09/26/18 16:00 09/26/18 20:00 Temperature 98.7 F 97.6 F Pulse Rate 94 H 84 94 H Respiratory Rate 28 H 21 26 H Blood Pressure 88/60 L 100/67 Pulse Oximetry 98 09/27/18 00:00 09/27/18 03:00 09/27/18 04:00 Temperature 98.8 F 98.3 F Pulse Rate 72 88 Respiratory Rate 18 12 12 Blood Pressure 96/52 L 93/48 L Pulse Oximetry 97 97 09/27/18 07:47 Temperature Pulse Rate Respiratory Rate Blood Pressure Pulse Oximetry 95 Intake & Output 09/26/18 09/27/18 09/27/18 18:59 06:59 18:59 Intake Total 720 / 720 Output Total 350 / 350 Balance 720 / 720 -350 / -350 Weight 55.7 kg Intake: Oral 720 / 720 Output: Urine 350 / 350 Other: # Voids 5 Date of Last Bowel Movement 09/26/18 09/25/18 # Bowel Movements 1 Narrative: GENERAL: Well-developed, well-nourished, in no acute distress. alert and orientated. Emotional HEENT: Head is normocephalic without any lesions or masses noted. Facial features are symmetric. Eyes: Extraocular muscles are intact. Conjunctivae were clear. NECK: Supple without any masses. Trachea midline no deviation. No JVD, CARDIAC: Regular rhythm, regular rate. S1/S2 are heard. No murmurs gallops or rubs. LUNGS: Clear to auscultation bilaterally. No wheeze, rhonchi or rales. No use of accessory muscles on inspiration or expiration. ABDOMEN: Soft, nontender. Nondistended. Bowel sounds heard in all 4 quadrants. No organomegaly or masses. Negative rebound, negative guarding EXTREMITIES: No edema, pulses are equal bilaterally. No cyanosis or clubbing NEUROLOGY: Mood and affect appear appropriate. Cranial nerves II through XII grossly intact. Moving all extremities, speech is clear Results - Labs CBC & Chem 7: 09/23/18 04:33 09/27/18 05:10 Laboratory Results - last 24 hr 09/27/18 05:10 Sodium 139 Potassium 4.4 Chloride 104 Carbon Dioxide 29.8 Anion Gap 5 BUN 22 H Creatinine 0.85 Estimated GFR 71 L Random Glucose 95 Calcium 8.7 - Procedures ECHOCARDIOGRAM CONCLUSIONS Mildly dilated left ventricle. Wall thickness is normal. The left ventricular systolic function is severely reduced with an estimated ejection fraction less than 20%. There is global left ventricular dysfunction. Moderate to severe mitral valve regurgitation. Aortic valve sclerosis is present. There is mild tricuspid valve regurgitation. The estimated pulmonary arterial pressure is 48 mmHg. The inferior vena cava is plethoric and noncompressible consistent with estimated RAP 15+mmHg. There is a small pericardial effusion present. A large left sided pleural effusion is noted. Assessment and Plan - Assessment (1) Elevated brain natriuretic peptide (BNP) level Code(s): R79.89 - Other specified abnormal findings of blood chemistry Status : Acute (2) Bilateral pleural effusion Code(s): J90 - Pleural effusion, not elsewhere classified Status: Acute - Plan This is a 48-year-old female patient with: Dilated cardiomyopathy -Cardiac enzymes were performed which did not indicate any acute abnormality or signs of acute coronary event -Myocardial perfusion study was performed which did not indicate any signs of ischemia -Patient continued on Coreg, low-dose WANDA inhibitor will continue. -Echocardiogram, see results -Cardiology consulted, recommendations for LifeVest and maximizing medication regimen. -Patient will require LifeVest prior to discharge Compensated systolic congestive heart failure -Patient with bilateral pleural effusions with shortness of breath, dyspnea, orthopnea, tachycardia. Resolved. -Chest x-ray is very vague and indicating that findings could represent pulmonary venous hypertension, mild edema, atelectasis, consolidation, effusion -Pulmonary angiogram was performed which did not indicate any embolic event, however upon reviewing the scan it does show rather significant bilateral pleural effusions with compressive atelectasis -Thoracentesis was performed with did have removal of 750 cc out of the right lung. -Pleural fluid studies indicating transudate of fluid -Continue monitor cardiac enzymes -Continue beta-migdalia, WANDA inhibitor -Continue Lasix 20 mg daily Suicidal ideation, without plan Depression -Consult placed to psychiatry. Patient denies any plan, states shes been depressed for a long time and increasing life stressors. DVT prevention -Sequential compression devices Discharge Planning: Awaiting plan for obtaining LifeVest. Also consult placed to psychiatry.
[2018-09-27] MEDS: Magnesium Oxide 400 MG Tablet PO SCH ×2 (14:11→18:13)
[2018-09-28 06:08] LABS: Potassium 4.4 meq/L (3.5-5.1)
[2018-09-28 06:13] LABS: Calcium 9.1 mg/dL (8.5-10.1)
--- NOTE | 2018-09-28 08:19 | P.PNIM ---
Subjective Interval history: Follow-up severe cardiomyopathy. Patient seen and examined, lying in bed comfortably no apparent distress. No acute events overnight. No chest pain. Awaiting LifeVest delivery today. Patient is expressing thankfulness for the LifeVest and is eager to get home. Patient is complying with hospitalization and treatment. Vital signs stable. Afebrile. Parameters for holding blood pressure meds are in place, patient does have some hypotension overnight. Asymptomatic. Physical Exam Vital signs: Vital Signs 09/27/18 09:00 09/27/18 12:37 09/27/18 16:00 Temperature 97.8 F Pulse Rate 98 H 88 82 Respiratory Rate 27 H 26 H 20 Blood Pressure 114/52 L 94/49 L 103/63 Pulse Oximetry 99 09/27/18 17:02 09/27/18 20:00 09/27/18 20:30 Temperature 98 F 98.0 F Pulse Rate 105 H 105 H Respiratory Rate 20 20 Blood Pressure 103/63 107/54 L 107/54 L Pulse Oximetry 95 95 09/28/18 00:00 09/28/18 04:00 09/28/18 05:28 Temperature 96.9 F L 96.6 F L Pulse Rate 82 75 Respiratory Rate 20 20 18 Blood Pressure 103/57 L 88/50 L Pulse Oximetry 99 98 Intake & Output 09/27/18 09/28/18 09/28/18 18:59 06:59 18:59 Intake Total 720 / 720 480 / 480 Output Total 3 / 3 Balance 720 / 720 477 / 477 Weight 56.4 kg Intake: Oral 720 / 720 480 / 480 Output: Stool 3 / 3 Other: # Voids 4 4 Date of Last Bowel Movement 09/25/18 Narrative: GENERAL: Well-developed, well-nourished, in no acute distress. alert and orientated. HEENT: Head is normocephalic without any lesions or masses noted. Facial features are symmetric. Eyes: Extraocular muscles are intact. Conjunctivae were clear. NECK: Supple without any masses. Trachea midline no deviation. No JVD, CARDIAC: Regular rhythm, regular rate. S1/S2 are heard. No murmurs gallops or rubs. LUNGS: Clear to auscultation bilaterally. No wheeze, rhonchi or rales. No use of accessory muscles on inspiration or expiration. ABDOMEN: Soft, nontender. Nondistended. Bowel sounds heard in all 4 quadrants. No organomegaly or masses. Negative rebound, negative guarding EXTREMITIES: No edema, pulses are equal bilaterally. No cyanosis or clubbing NEUROLOGY: Mood and affect appear appropriate. Cranial nerves II through XII grossly intact. Moving all extremities, speech is clear Results - Labs CBC & Chem 7: 09/23/18 04:33 09/28/18 04:39 Laboratory Results - last 24 hr 09/28/18 04:39 Sodium 140 Potassium 4.4 Chloride 103 Carbon Dioxide 30.0 Anion Gap 7 BUN 28 H Creatinine 0.81 Estimated GFR 75 L Random Glucose 89 Calcium 9.1 - Procedures ECHOCARDIOGRAM CONCLUSIONS Mildly dilated left ventricle. Wall thickness is normal. The left ventricular systolic function is severely reduced with an estimated ejection fraction less than 20%. There is global left ventricular dysfunction. Moderate to severe mitral valve regurgitation. Aortic valve sclerosis is present. There is mild tricuspid valve regurgitation. The estimated pulmonary arterial pressure is 48 mmHg. The inferior vena cava is plethoric and noncompressible consistent with estimated RAP 15+mmHg. There is a small pericardial effusion present. A large left sided pleural effusion is noted. Assessment and Plan - Assessment (1) Elevated brain natriuretic peptide (BNP) level Code(s): R79.89 - Other specified abnormal findings of blood chemistry Status : Acute (2) Bilateral pleural effusion Code(s): J90 - Pleural effusion, not elsewhere classified Status: Acute - Plan This is a 48-year-old female patient with: Dilated cardiomyopathy -Cardiac enzymes were performed which did not indicate any acute abnormality or signs of acute coronary event -Myocardial perfusion study was performed which did not indicate any signs of ischemia -Patient continued on Coreg, low-dose WANDA inhibitor will continue. -Echocardiogram, see results -Cardiology consulted, recommendations for LifeVest and maximizing medication regimen. LifeVest to be delivered today. -Patient will require LifeVest prior to discharge delivery today. Compensated systolic congestive heart failure -Patient with bilateral pleural effusions with shortness of breath, dyspnea, orthopnea, tachycardia. Resolved. -Chest x-ray is very vague and indicating that findings could represent pulmonary venous hypertension, mild edema, atelectasis, consolidation, effusion -Pulmonary angiogram was performed which did not indicate any embolic event, however upon reviewing the scan it does show rather significant bilateral pleural effusions with compressive atelectasis -Thoracentesis was performed with did have removal of 750 cc out of the right lung. -Pleural fluid studies indicating transudate of fluid -Continue monitor cardiac enzymes -Continue beta-imgdalia, WANDA inhibitor -Continue Lasix 20 mg daily -We will continue medications at home. Mandatory referral placed upon discharge to power system dispatcher, case management assisting. Suicidal ideation, without plan Depression -Consult placed to psychiatry, and to see patient today. Patient denies any plan , states shes been depressed for a long time and increasing life stressors. She is in a better mood today especially with the news of receiving a LifeVest. DVT prevention -Sequential compression devices Discharge Planning: Awaiting plan for obtaining LifeVest.
[2018-09-28] MEDS: Spironolactone 25 MG Tablet PO SCH (09:54)
[2018-09-28] MEDS: Furosemide 20 MG Tablet PO SCH (09:54)
[2018-09-28] MEDS: Carvedilol 6.25 MG Tablet PO SCH (09:54)
[2018-09-28] MEDS: Lisinopril 5 MG Tablet PO SCH (09:54)
[2018-09-28] MEDS: Senna/Docusate Sodium 8.6/50 MG Tablet PO SCH (09:54)
--- NOTE | 2018-09-28 11:19 | P.DS ---
Date of admission: 09/22/18 06:40 Primary care physician: No Primary Care Physician Anticipated date of discharge: 09/28/18 Brief History from admission: 48-year-old female with no chronic medical illnesses who presented to hospital because of shortness of breath and dyspnea. Patient states that over the last 2 weeks she has been having intermittent shortness of breath and dyspnea. She states that it is worse whenever she lays down, however it does improve whenever she stands up. She does have a long history of tobacco use which she quit smoking 5 years ago. She has had a dry nonproductive cough over the last few weeks as well. Patient states that whenever she gets these episodes she does feel very anxious, pressure in her chest, feels her heart racing. She started feeling at 11 PM last night and just did not get any better , she woke her son up at 4 AM this morning and he brought her to the hospital for evaluation. Workup does indicate significant pleural effusion bilaterally on CT scan. Patient has been tachycardic. No signs of any infection at this time. But no etiology of patient's pleural effusion, elevated BNP. Patient denies any lower extremity edema, denies any dyspnea on exertion. Patient update on day of discharge: Follow-up severe cardiomyopathy. Patient seen and examined, lying in bed comfortably no apparent distress. No acute events overnight. No chest pain. Awaiting LifeVest delivery today. Patient is expressing thankfulness for the LifeVest and is eager to get home. Patient is complying with hospitalization and treatment. Vital signs stable. Afebrile. Parameters for holding blood pressure meds are in place, patient does have some hypotension overnight. Asymptomatic. DS: Diagnosis - Discharge Diagnosis (1) Elevated brain natriuretic peptide (BNP) level Status: Acute (2) Bilateral pleural effusion Status: Acute DS: Medications - Discharge Medications Prescriptions: carvedilol [Coreg] 6.25 mg PO BID 30 Days #60 tab furosemide 20 mg PO DAILY 30 Days #30 tab lisinopril 2.5 mg PO DAILY 30 Days #15 tab potassium chloride [Klor-Con 10] 10 meq PO DAILY 30 Days #30 tab spironolactone [Aldactone] 12.5 mg PO DAILY 30 Days #15 tab DS: Summary Hospital Course: This is a 48-year-old female patient with dilated cardiomyopathy. Cardiac enzymes were performed which did not indicate any acute abnormality or signs of acute coronary event. Myocardial perfusion study was performed which did not indicate any signs of ischemia. Patient continued on Coreg, low-dose WANDA inhibitor will continue. Echocardiogram, see results. Cardiology consulted, recommendations for LifeVest and maximizing medication regimen. LifeVest to be delivered today on dc. Also has compensated systolic congestive heart failure. Patient with bilateral pleural effusions on presentation with shortness of breath, dyspnea, orthopnea, tachycardia. Chest x-ray is very vague and indicating that findings could represent pulmonary venous hypertension, mild edema, atelectasis, consolidation, effusion. Pulmonary angiogram was performed which did not indicate any embolic event, however upon reviewing the scan it does show rather significant bilateral pleural effusions with compressive atelectasis. Thoracentesis was performed with did have removal of 750 cc out of the right lung. Pleural fluid studies indicating transudate of fluid. Continue beta-migdalia, WANDA inhibitor. Continue Lasix 20 mg daily. We will continue medications at home. Mandatory referral placed upon discharge to medicare contact specialist, case management assisting. Suicidal ideation, without plan and depression while hospitalized. Consult placed to psychiatry. Patient denies any plan, states shes been depressed for a long time and increasing life stressors. She is in a better mood today especially with the news of receiving a LifeVest. DC home safely. Follow up [facility] and referral to medicare contact specialist. RX as dc plan. Heart healthy diet. Activity as tolerated. - Time Spent with Patient Total time spent providing and/or coordinating discharge services: Greater than 30 minutes - Quality: VTE Deep Vein Thrombosis/Pulmonary Embolism Present on Admission: No Exam Vital signs: Vital Signs 09/27/18 12:37 09/27/18 16:00 09/27/18 17:02 Temperature Pulse Rate 88 82 Respiratory Rate 26 H 20 Blood Pressure 94/49 L 103/63 103/63 Pulse Oximetry 09/27/18 20:00 09/27/18 20:30 09/28/18 00:00 Temperature 98 F 98.0 F 96.9 F L Pulse Rate 105 H 105 H 82 Respiratory Rate 20 20 20 Blood Pressure 107/54 L 107/54 L 103/57 L Pulse Oximetry 95 95 99 09/28/18 04:00 09/28/18 05:28 09/28/18 08:00 Temperature 96.6 F L 97.6 F Pulse Rate 75 75 Respiratory Rate 20 18 18 Blood Pressure 88/50 L 87/49 L Pulse Oximetry 98 97 Intake & Output 09/27/18 09/28/18 09/28/18 18:59 06:59 18:59 Intake Total 720 / 720 480 / 480 Output Total 3 / 3 Balance 720 / 720 477 / 477 Weight 56.4 kg Intake: Oral 720 / 720 480 / 480 Output: Stool 3 / Other: # Voids 4 4 Date of Last Bowel Movement 09/25/18 Narrative: GENERAL: Well-developed, well-nourished, in no acute distress. alert and orientated. HEENT: Head is normocephalic without any lesions or masses noted. Facial features are symmetric. Eyes: Extraocular muscles are intact. Conjunctivae were clear. NECK: Supple without any masses. Trachea midline no deviation. No JVD, CARDIAC: Regular rhythm, regular rate. S1/S2 are heard. No murmurs gallops or rubs. LUNGS: Clear to auscultation bilaterally. No wheeze, rhonchi or rales. No use of accessory muscles on inspiration or expiration. ABDOMEN: Soft, nontender. Nondistended. Bowel sounds heard in all 4 quadrants. No organomegaly or masses. Negative rebound, negative guarding EXTREMITIES: No edema, pulses are equal bilaterally. No cyanosis or clubbing NEUROLOGY: Mood and affect appear appropriate. Cranial nerves II through XII grossly intact. Moving all extremities, speech is clear Results Procedures completed during hospitalization: ECHOCARDIOGRAM CONCLUSIONS Mildly dilated left ventricle. Wall thickness is normal. The left ventricular systolic function is severely reduced with an estimated ejection fraction less than 20%. There is global left ventricular dysfunction. Moderate to severe mitral valve regurgitation. Aortic valve sclerosis is present. There is mild tricuspid valve regurgitation. The estimated pulmonary arterial pressure is 48 mmHg. The inferior vena cava is plethoric and noncompressible consistent with estimated RAP 15+mmHg. There is a small pericardial effusion present. A large left sided pleural effusion is noted. Labs on day of discharge: Labs from last 24 hours 09/28/18 04:39 Sodium 140 Potassium 4.4 Chloride 103 Carbon Dioxide 30.0 Anion Gap 7 BUN 28 H Creatinine 0.81 Estimated GFR 75 L Random Glucose 89 Calcium 9.1 - Impressions ITS Impressions Thoracentesis Ultrasound 09/22/18 00:00 CONCLUSION: 1. Uncomplicated right thoracentesis yielding 750 cc of clear yellow pleural fluid which was sent for laboratory evaluation. Chest CTA 09/22/18 05:37 CONCLUSION: 1. No pulmonary embolus. 2. Moderate to large bilateral pleural effusions being worse in the left with suspected accompanying areas of atelectasis or consolidation at the posterior lower lobes. Myocardial Perfusion Scan Nuc Med 09/22/18 14:25 CONCLUSION: 1. Scintigraphic findings characteristic of a dilated cardiomyopathy with diffuse hypokinesis and a markedly reduced ejection fraction of 22%. 2. Possible old apical infarct. 3. No reversibility to suggest ischemia. Chest X-Ray 09/25/18 00:00 CONCLUSION: The lungs are clear. No residual pleural effusion. Discharge Plan - Discharge Disposition Patient Disposition: Discharge Home - Discharge Condition Condition: Stable - Discharge Order Discharge Orders: Discharge Order (Routine); Ordered 09/28/18 Ordered By: Naomi Calderon - Discharge Details Anticipated Discharge Date: 09/28/18 Discharge Comment: OK TO DC AFTER GETTING LIFEVEST. - Physicians Team Primary Care Provider: Primary Care Curti,Poppy Attending Provider: Carlos A Rios Other Providers: Vazquez Yeh MD ; Jonathan Ann MD
[2018-09-28] MEDS: Magnesium Oxide 400 MG Tablet PO SCH (12:17)
--- NOTE | 2018-09-28 13:45 | P.CONPSY ---
Provisional Diagnosis Admission Date: September 22, 2018 06:40 [place].: Adjustment disorder with depressed mood History of Present Illness Service: ER Primary Care Provider: No Primary Care Physician Chief Complaint: Shortness of breath and dyspnea History of Present Illness: The patient is a 48-year-old woman, hospitalized due to Dilated cardiomyopathy, who has expressed suicidal ideation, was consulted to psychiatry for this reason. On my psychiatric evaluation today the patient is oppositional, resistant, and stating that she did not ask to speak with a psychiatrist and she prefers to sleep. With redirection the patient was able to at least answer some of my questions. She says that she is just frustrated given her medical problems and her hospitalization. But she says that she feels okay now, denies depression, denies anxiety, denies gail and psychosis. She denies suicidal and homicidal ideation, she denies visual and auditory hallucinations. The patient refused to cooperate with a cognitive assessment. She repeatedly says that she does not kill herself, that she is just frustrated and went to sleep. - [facility] - History History Provided By: Patient - Medical History Medical History: Medical History (Last Reviewed 09/22/18 @ 09:01 by LONI Finley) Patient denies medical problems - Surgical History Surgical History: Surgical History (Last Reviewed 09/22/18 @ 09:01 by LONI Finley) No history of previous surgery - Family History Family History: Family History (Last Updated 09/22/18 @ 09:01 by LONI Finley) Father Family history of tobacco abuse - Tobacco History Second Hand Smoke Exposure: No Tobacco Use In Past 30 Days: No Smoking Status: Former smoker Tobacco Type: Cigarettes Number of Pack Years (if former smoker): 15 - Alcohol History How Often Do You Have a Drink Containing Alcohol: 2 to 4 times a month - Substance Use History Substance History: No History of Abuse - Travel History Recent Travel in the [place] Within the Last 8 Weeks: No Recent Travel Out of the Country Within the Last 8 Weeks: No - Immunization History Tetanus Immunization: Unsure Hx Influenza Vaccine This Season: Yes Medications and Allergies Active Medications: Active Medications Acetaminophen (Tylenol) 650 mg PO Q4H PRN PRN Reason: Temp > 100.4 Last Admin: 09/27/18 02:32 Dose: 650 mg Al Hydroxide/Mg Hydroxide (Milk Of Magnesia Liq) 30 ml PO Q12H PRN PRN Reason: Mild Constipation Bisacodyl (Dulcolax Supp) 10 mg RECTAL DAILY PRN PRN Reason: SEVERE CONSITIPATION Carvedilol (Coreg) 6.25 mg PO BID [facility] Last Admin: 09/28/18 09:54 Dose: Not Given Furosemide (Lasix) 20 mg PO DAILY [facility] Last Admin: 09/28/18 09:54 Dose: Not Given Lactulose (Lactulose Liq) 30 ml PO DAILY PRN PRN Reason: SEVERE CONSITIPATION Lisinopril (Prinivil) 2.5 mg PO DAILY [facility] Last Admin: 09/28/18 09:54 Dose: Not Given Magnesium Oxide (Mag-Ox) 400 mg PO BID@1100,1800 [facility] Last Admin: 09/28/18 12:17 Dose: Not Given Miscellaneous (Pill Splitter) 1 each OTHER UNSCH PRN PRN Reason: SEE LABEL COMMENTS Miscellaneous (Pill Splitter) 1 each OTHER UNSCH [facility] Ondansetron HCl (Zofran Inj) 4 mg IV.PUSH Q6H PRN PRN Reason: NAUSEA OR VOMITING Potassium Chloride (Klor-Con 10) 10 meq PO DAILY [facility] Last Admin: 09/28/18 09:54 Dose: Not Given Senna/Docusate Sodium (Stella-Colace) 1 tab PO BID [facility] Last Admin: 09/28/18 09:54 Dose: Not Given Sennosides (Senokot) 17.2 mg PO Q12H PRN PRN Reason: Moderate Constipation Spironolactone (Aldactone) 12.5 mg PO DAILY [facility] Last Admin: 09/28/18 09:54 Dose: Not Given Allergies Allergy/AdvReac Type Severity Reaction Status Date / Time codeine Allergy Severe WELTS Verified 09/22/18 04:43 Home Medications Medication Instructions Recorded Confirmed Type No Known Home Medications 09/22/18 09/22/18 History Exam Vital signs: Vital Signs 09/27/18 16:00 09/27/18 17:02 09/27/18 20:00 Temperature 98 F Pulse Rate 82 105 H Respiratory Rate 20 20 Blood Pressure 103/63 103/63 107/54 L Pulse Oximetry 95 09/27/18 20:30 09/28/18 00:00 09/28/18 04:00 Temperature 98.0 F 96.9 F L 96.6 F L Pulse Rate 105 H 82 75 Respiratory Rate 20 20 20 Blood Pressure 107/54 L 103/57 L 88/50 L Pulse Oximetry 95 99 98 09/28/18 05:28 09/28/18 08:00 09/28/18 12:00 Temperature 97.6 F 97.2 F L Pulse Rate 75 94 H Respiratory Rate 18 18 18 Blood Pressure 87/49 L 89/52 L Pulse Oximetry 97 97 Intake & Output 09/27/18 09/28/18 09/28/18 18:59 06:59 18:59 Intake Total 720 / 720 480 / 480 Output Total 3 / 3 Balance 720 / 720 477 / 477 Weight 56.4 kg Intake: Oral 720 / 720 480 / 480 Output: Stool Other: # Voids 4 4 Date of Last Bowel Movement 09/25/18 Mental Status Examination Appearance: Appropriate Consciousness: Alert Orientation: x4 Motor Activity: Normal gait Speech: Unremarkable Language: Adequate Fund of Knowledge: Adequate Attention and Concentration: Adequate Memory: Unremarkable Mood: Irritable Affect: Irritable Thought Process & Associations: Intact Thought Content: Appropriate Hallucination Type: None Delusion Type: None Suicidal Ideation: No Suicidal Plan: No Suicidal Intention: No Homicidal Ideation: No Homicidal Plan: No Homicidal Intention: No Insight: Adequate Judgment: Adequate Assessment and Plan - Assessment (1) Adjustment disorder Code(s): F43.20 - Adjustment disorder, unspecified Status: Acute - Plan Plan: On psychiatric evaluation today the patient presents irritable, oppositional and resistant, refusing to cooperate with psychiatric evaluation initially. Stating that she prefers to sleep, that she has no asked to speak with a psychiatrist. The patient says that she is no suicidal, she is just frustrated. The patient reports good mood, she says that she is okay. She is future oriented, she says that she wants to get better. We will continue taking her medical medications. At this point there is no concern about safety. Patient seems to be future oriented. Please address the need for further psychiatric assessment, but at this moment the patient does not meet criteria for involuntary psych admission, and she has the right refuses psychiatric care. Justification for Continued Inpatient Stay: No admission indicated
== END 2018-09-28 17:37 | disposition home or self-care (01) ==
LOC: PHED 04:27 → PHEDA 06:40 → PHICU 07:36 → PH3 09-27 18:08 → UNDODISIN 09-28 16:40
PROVIDERS: ADMIT Internal Medicine; ATTEND Internal Medicine